=== PATIENT | female | born 1950 | race Two or more races ===

== ENCOUNTER 2017-07-05 08:30 | Day surgery (SDC) | payer MEDICARE, OTHER ==
[~2017-07-05 08:30] MED LIST: CEFAZOLIN 1 GM/D5W RTU 1 GM/50 ML RTUPB IV PRN; DEXTROSE 5%-1/2 NORMAL SALINE 1,000 ML IV PRN
--- NOTE | 2017-07-05 09:32 | RADIOLOGY REPORT (SQ) ---
EXAM DESCRIPTION: CHEST SINGLE VIEW COMPLETED DATE/TIME: 07/05/2017 9:21 am REASON FOR STUDY: PREOP COMPARISON: None. EXAM PARAMETERS: NUMBER OF VIEWS: One view. TECHNIQUE: Single frontal radiographic view of the chest acquired. RADIATION DOSE: NA LIMITATIONS: None. FINDINGS: LUNGS AND PLEURA: No opacities, masses or pneumothorax. No pleural effusion. MEDIASTINUM AND HILAR STRUCTURES: No masses. Contour normal. HEART AND VASCULAR STRUCTURES: Heart normal in size. Normal vasculature. BONES: No acute findings. HARDWARE: None in the chest. OTHER: No other significant finding. IMPRESSION: NO ACUTE RADIOGRAPHIC FINDING IN THE CHEST. TECHNICAL DOCUMENTATION: JOB ID: [id number] [employer]- All Rights Reserved
[2017-07-05 10:24] LABS: ABSOLUTE BASOPHILS # (AUTO) 0.1 10^3/uL (0.0-0.2); ABSOLUTE EOSINOPHILS # (AUTO) 0.1 10^3/uL (0.0-0.6); ABSOLUTE LYMPHOCYTES (AUTO) 2.1 10^3/uL (0.5-4.7); ABSOLUTE MONOCYTES (AUTO) 0.5 10^3/uL (0.1-1.4); ABSOLUTE NEUT (AUTO) 3.5 10^3/uL (1.7-8.2); BASOPHILS % (AUTO) 0.8 % (0-2); HEMOGLOBIN 10.4 g/dL (12.0-15.5); HGB HCT DIFFERENCE 0.2; MEAN CORPUSCULAR HEMOGLOBIN 29.2 pg (27.0-33.4); MEAN CORPUSCULAR HGB CONC 33.6 g/dL (32.0-36.0); MEAN CORPUSCULAR VOLUME 87 fl (80-97); MONOCYTES % (AUTO) 8.3 % (3-13); RED BLOOD COUNT 3.57 10^6/uL (3.72-5.28); RED CELL DISTRIBUTION WIDTH 12.9 % (11.5-14.0); SEGMENTED NEUTROPHILS % (AUTO) 55.9 % (42-78); WHITE BLOOD COUNT 6.2 10^3/uL (4.0-10.5)
[2017-07-05 10:44] LABS: ANION GAP 8 (5-19); BLOOD UREA NITROGEN 18 mg/dL (7-20); CALCIUM 9.6 mg/dL (8.4-10.2); CARBON DIOXIDE 28 mmol/L (22-30); CHLORIDE 105 mmol/L (98-107); CREATININE RESULT 0.72 mg/dL (0.52-1.25); GLUCOSE 106 mg/dL (75-110); POTASSIUM 3.5 mmol/L (3.6-5.0); SODIUM 141.2 mmol/L (137-145)
[2017-07-05] MEDS ORDERED: MIDAZOLAM 2 MG/2 ML INJ ONE (12:07)
[2017-07-05] MEDS ORDERED: BACITRACIN INJ 50,000 UNIT VIAL ONE (12:07)
[2017-07-05] MEDS ORDERED: FENTANYL CITRATE INJ/PF 100 MCG/2 ML AMPUL ONE (12:07)
[2017-07-05] MEDS ORDERED: LIDOCAINE 0.5% INJ-PF (5 MG/ML) 50 ML SDV ONE (12:09)
[2017-07-05] MEDS ORDERED: OXYCODONE-ACETAMINOPHEN 5-325 MG TABLET ONE (12:23)
[2017-07-05] MEDS ORDERED: DIAZEPAM 5 MG TABLET ONE (12:24)
[2017-07-05] MEDS ORDERED: OXYCODONE-ACETAMINOPHEN 5-325 MG TABLET PO ONE (13:30)
[2017-07-05] MEDS ORDERED: DIAZEPAM 5 MG TABLET PO ONE (13:30)
--- NOTE | 2017-07-05 13:49 | PDOC DISCHARGE SUMMARY ---
Discharge Summary (SDC) - Discharge Final Diagnosis: #1 endometrial cancer. 2. Hypertension. Date of Surgery: 07/05/17 Discharge Date: 07/05/17 Condition: Fair Treatment or Instructions: Discharge home [after recovery per ASU criteria]. Diet , as tolerated, when fully awake advance as tolerated. Activities within moderation encouraged. Follow up in my office by appointment in about [1 week]. Call for appointment. Leave wounds [covered], [keep clean and dry, until office visit in 1 week]. Medications per med rec. Hold of on school/work [until evaluation in office]. May shower [in 48 hrs], [try to keep operated area as dry as possible]. Prescriptions: Oxycodone HCl/Acetaminophen [Percocet 5-325 mg Tablet] 1 tab PO ASDIR PRN #15 tab PRN Reason: Referrals: HEMANT PEREZ PA [Primary Care Provider] - Discharge Diet: As Tolerated Respiratory Treatments at Home: Deep Breathing/Coughing Discharge Activity: Activity As Tolerated Report the Following to Your Physician Immediately: Shortness of Breath, Unusual Bleeding
--- NOTE | 2017-07-05 13:51 | Operative Report ---
Operative Report DATE OF SURGERY: 07/05/17 PREOPERATIVE DIAGNOSIS: #1 endometrial cancer. 2. Hypertension. POSTOPERATIVE DIAGNOSIS: #1 endometrial cancer. 2. Hypertension. OPERATION: 1. Real-time ultrasound access into the right internal jugular vein. 2. Port-A-Cath insertion via real-time access in the right internal jugular vein. 3 angiogram and interpretation. SURGEON: RAY HEALY PARKING PATROLLER: None ANESTHESIA: Moderate Sedation TISSUE REMOVED OR ALTERED: Not applicable. COMPLICATIONS: None. ESTIMATED BLOOD LOSS: 5 mL. INTRAOPERATIVE FINDINGS: Of a satisfactory right internal jugular vein, estimated about 1.2 cm in diameter. Satisfactory access. Apparently satisfactory placement of the tip of the catheter down to the right atrium. Angiogram demonstrated smooth flow of contrast through the superior vena cava, right atrium and into the pulmonary outflow tract. Easy egress of blood and ingress of heparinized solution. PROCEDURE: After obtaining informed consent, the patient was taken to the Retail Sales Clerk and positioned supine. The [right] neck and chest were prepared with chlorhexidine and draped out with sterile linen. After the " universal timeout", in which it was verified that the patient continued to receive antibiotic, the procedure commenced. A steriley sheathed ultrasound probe was used to evaluate the [ right] internal jugular vein. Local anesthesia was infiltrated adjacent to the probe. Access into the [right] internal jugular vein was obtained using a micropuncture needle, followed by micropuncture wire and then a micropuncture catheter. This was followed by introduction of a 0.035 guidewire the tip of which was placed down into the inferior vena cava . The port sites was marked , locally anesthetized and incision made. Dissection now proceeded to the deep subcutaneous subcutaneous tissues so that a pocket for the port was made. Meticulous hemostasis was secured and the catheter was tunneled between the 2 incisions. Proximally, the catheter was now positioned using a peel-away sheath. Distally the catheter was tailored to an appropriate length and then mated to the port using the contained fixating device. The port was now placed in the pocket and the catheter optimally positioned. The port was accessed with a Knight needle and an angiogram done under digital subtraction. The findings as dictated. With adequate and satisfactory positioning, both lumens of the chamber were irrigated with heparinized solution. The wounds were now closed using interrupted 3-0 PDS to the subcutaneous tissues and a continuous subcuticular suture of 4-0 Monocryl to the skin. These are reinforced with Steri-Strips over benzoin and then dressings applied. Time: 0.1 minute. Dose: 15.47 m Gy Contrast: 6 mls. Isovue 300. Copies of the dictated operative report for Dr. Ray Urias MD.
[2017-07-05 14:40] VITALS: BP 125/79
== END 2017-07-05 15:00 | disposition home or self-care (01) ==
LOC: CCL 08:30
PROVIDERS: ATTEND Surgery
PROC: 05HM33Z Insertion of Infusion Device into Right Internal Jugular Vein, Percutaneous Approach (ICD-10-PCS; principal; 2017-07-05)
DX: C54.1 Malignant neoplasm of endometrium (principal); I10 Essential (primary) hypertension; Z79.899 Other long term (current) drug therapy; Z79.1 Long term (current) use of non-steroidal anti-inflammatories (NSAID); Z96.652 Presence of left artificial knee joint
CPT/HCPCS: 36415; 85025; 80048; 36561; 76937; 77001; 71010; C1752; C1788; J2250; J3490 ×2; J0690; A9270 ×2; J3010; J1644

== ENCOUNTER → 2018-02-02 | Outpatient (CLI) | payer MEDICARE, OTHER ==
--- NOTE | 2018-02-02 11:58 | RADIOLOGY REPORT (SQ) ---
EXAM DESCRIPTION: CT ABD/PELVIS WITH IV ORAL COMPLETED DATE/TIME: 02/02/2018 11:35 am REASON FOR STUDY: MALIGNANT NEOPLASM OF ENDOMETRIUM (C54.1) C54.1 MALIGNANT NEOPLASM OF ENDOMETRIUM COMPARISON: CT abdomen pelvis 04/19/2017, outside study TECHNIQUE: CT scan of the abdomen and pelvis performed using helical scanning technique with dynamic intravenous contrast injection. Patient drank oral contrast. Images reviewed with lung, soft tissue , and bone windows. Reconstructed coronal and sagittal MPR images reviewed. Delayed images for evalua tion of the urinary system also acquired. All images stored on PACS. All CT scanners at this facility use dose modulation, iterative reconstruction, and/or weight based d osing when appropriate to reduce radiation dose to as low as reasonably achievable (ALARA). [facility]: Dose Right [facility]: CareDose [facility]: Dose Right [facility]: Teradose 4D [facility]: Inofile CONTRAST TYPE AND DOSE: contrast/concentration: Isovue 370.00 mg/ml; Total Contrast Delivered: 93.0 ml; Total Saline Delivered: 71.0 ml RENAL FUNCTION: Creatinine 1.0 RADIATION DOSE: CT Rad equipment meets quality standard of care and radiation dose reduction techniq ues were employed. CTDIvol: 17.1 - 18.6 mGy. DLP: 1856 mGy-cm.. LIMITATIONS: None. FINDINGS: LOWER CHEST: No significant findings. No nodules or infiltrates. LIVER: Normal size. No masses. No dilated ducts. SPLEEN: Normal size, less than 10 cm in length. No focal lesions. There is a large vein in the left upper quadrant along the GE junction, draining into the left renal vein. This is best shown on coron al images 50-58 and axial images 12-25. This could represent an anatomic variant or could be a spont aneous splenorenal shunt from portal hypertension. This is unchanged from outside CT 09/12/2017. PANCREAS: No masses. No significant calcifications. No adjacent inflammation or peripancreatic fluid collections. Pancreatic duct not dilated. GALLBLADDER: Post cholecystectomy ADRENAL GLANDS: No significant masses or asymmetry. RIGHT KIDNEY AND URETER: No solid masses. No significant calcifications. No hydronephrosis or hyd roureter. LEFT KIDNEY AND URETER: No solid masses. No significant calcifications. No hydronephrosis or hydr oureter. AORTA AND VESSELS: No aneurysm. No dissection. Renal arteries, SMA, celiac without stenosis. RETROPERITONEUM: No retroperitoneal adenopathy. There are pelvic and pericaval retroperitoneal surgi cami clips from lymph node dissection BOWEL AND PERITONEAL CAVITY: Patient drank oral contrast. No CT evidence of bowel obstruction. No f ree intraperitoneal air or fluid. APPENDIX: Surgically absent PELVIS: Post hysterectomy. No pelvic free fluid. No pelvic masses or adenopathy. ABDOMINAL WALL: No masses. No hernias. BONES: No significant or acute findings. OTHER: No other significant finding. IMPRESSION: No CT evidence of metastatic disease, given history of endometrial carcinoma TECHNICAL DOCUMENTATION: JOB ID: [id number] Quality ID # [id number]: Final reports with documentation of one or more dose reduction techniques (e.g., Au tomated exposure control, adjustment of the mA and/or kV according to patient size, use of iterative reconstruction technique) 2010 [employer]- All Rights Reserved Reading location - IP/workstation name: [email or web address]
== END ==
LOC: RAD 10:14
PROVIDERS: ATTEND Internal Medicine Hematology & Oncology
DX: C54.1 Malignant neoplasm of endometrium (principal)
CPT/HCPCS: 74177; 82565

== ENCOUNTER → 2018-08-07 | Outpatient (CLI) | payer MEDICARE, OTHER ==
--- NOTE | 2018-08-07 14:53 | RADIOLOGY REPORT (SQ) ---
EXAM DESCRIPTION: NM WHOLE BODY BONE SCAN COMPLETED DATE/TIME: 08/07/2018 2:37 pm REASON FOR STUDY: ENDOMETRIAL CA (C54.1), OTHER SPECIFIED DISORDERS OF BONE DENSITY AND STRUC C54.1 MALIGNANT NEOPLASM OF ENDOMETRIUM M85.80 OTH DISRD OF BONE DENSITY AND STRUCTURE, UNSPECIFIED COMPARISON: CT abdomen pelvis 02/02/2018 RADIONUCLIDE AND DOSE: 20 millicuries Tc99m HDP. The route of agent administration: Intravenous. ADDITIONAL DRUGS AND DOSES: None. TECHNIQUE: Routine delayed images at 3 hours post radionuclide injection acquired of the bony skelet on including anterior and posterior whole-body projections and additional focused images as needed. LIMITATIONS: None. FINDINGS: BONES: There is degenerative uptake in the right knee. There is degenerative uptake in th e feet, right more than left. There is focal uptake on the right side at L3. There is mild focal up take in the right side of the mid cervical spine. KIDNEYS: Symmetric excretion without obstruction. OTHER: No other significant finding. IMPRESSION: 1. Degenerative uptake in the right knee and in the feet as described. 2. There is mild uptake in the lumbar spine and in the cervical spine felt to be degenerative. The overall appearance of the scan does not suggest metastatic disease to bone. COMMENT: Quality measure 147: Current bone scan is compared with any available plain radiographs, p rior bone scans, and CT/MRI. TECHNICAL DOCUMENTATION: JOB ID: [id number] [employer]- All Rights Reserved Reading location - IP/workstation name: [email or web address]
== END ==
LOC: RAD 10:11
PROVIDERS: ATTEND Internal Medicine Hematology & Oncology
DX: C54.1 Malignant neoplasm of endometrium (principal); M85.80 Other specified disorders of bone density and structure, unspecified site; M17.11 Unilateral primary osteoarthritis, right knee; M19.072 Primary osteoarthritis, left ankle and foot; M19.071 Primary osteoarthritis, right ankle and foot
CPT/HCPCS: 78306; A9561; Q9969

== ENCOUNTER 2018-10-13 17:50 | Emergency (ER) | payer MEDICARE ==
[2018-10-13 18:10] VITALS: BP 138/83
== END 2018-10-13 22:20 | disposition left against medical advice (07) ==
LOC: ER 17:50
DX: Z53.21 Procedure and treatment not carried out due to patient leaving prior to being seen by health care provider (principal)

== ENCOUNTER 2019-02-09 14:45 | Inpatient (IN) | payer MEDICARE, OTHER ==
[2019-02-09] MEDS ORDERED: VANCOMYCIN HCL INJ 1000 MG VIAL IV ONE (15:03)
[2019-02-09] MEDS ORDERED: ACETAMINOPHEN 325 MG TABLET PO ONE (15:03)
[2019-02-09] MEDS ORDERED: PIPERACILLIN/TAZOBACTAM 3.375 GM VIAL IV ONE (15:04)
[2019-02-09] MEDS ORDERED: NORMAL SALINE 1000 ML 1,000 ML IV ONE (15:05)
--- NOTE | 2019-02-09 15:51 | ER Document Report ---
ED Fever - General Chief Complaint: Fever Stated Complaint: FEVER Time Seen by Provider: 02/09/19 15:02 Primary Care Provider: VIJAY BRANDON MD [Primary Care Provider] - Follow up as needed Information source: Patient TRAVEL OUTSIDE OF THE [place] IN LAST 30 DAYS: No - HPI Patient complains to provider of: fever Onset: Yesterday Onset/Duration: Gradual Quality of pain: Achy Severity: Mild Context: Cancer Associated symptoms: Fever, Headache, Sore throat Notes: patient with AML presenting to ED with fever she is on chemotherapy with last treatment approximately 2 weeks ago no chest pain, sob, urinary pain, rashes, vomiting/diarrhea she does have a headache and body aches - Related Data Allergies/Adverse Reactions: morphine Allergy (Verified 02/09/19 15:03) Past Medical History - Social History Smoking Status: Never Smoker Chew tobacco use (# tins/day): No Frequency of alcohol use: None Drug Abuse: None Lives with: Spouse/Significant other Family History: None Patient has suicidal ideation: No Patient has homicidal ideation: No - Past Medical History Cardiac Medical History: Reports: Hx Hypertension Denies: Hx Coronary Artery Disease, Hx Heart Attack Pulmonary Medical History: Denies: Hx Asthma, Hx Bronchitis, Hx COPD, Hx Pneumonia Neurological Medical History: Denies: Hx Cerebrovascular Accident, Hx Seizures Renal/ Medical History: Denies: Hx Peritoneal Dialysis Musculoskeletal Medical History: Reports Hx Arthritis - GENERALIZED - Immunizations Hx Diphtheria, Pertussis, Tetanus Vaccination: Yes Review of Systems - Review of Systems Constitutional: Fever EENT: No symptoms reported Cardiovascular: No symptoms reported Respiratory: No symptoms reported Gastrointestinal: No symptoms reported Genitourinary: No symptoms reported Female Genitourinary: No symptoms reported Musculoskeletal: Muscle pain Skin: No symptoms reported Hematologic/Lymphatic: No symptoms reported Neurological/Psychological: Headaches Physical Exam - Vital signs Vitals: Temp Pulse Resp BP Pulse Ox 100.1 F 125 H 20 134/68 H 98 02/09/19 15:02 02/09/19 15:02 02/09/19 15:02 02/09/19 15:02 02/09/19 15:02 Interpretation: Normal - General General appearance: Appears well, Alert - HEENT Head: Normocephalic, Atraumatic Eyes: Normal Pupils: PERRL - Respiratory Respiratory status: No respiratory distress Chest status: Nontender Breath sounds: Normal Chest palpation: Normal - Cardiovascular Rhythm: Regular Heart sounds: Normal auscultation Murmur: No - Abdominal Inspection: Normal Distension: No distension Bowel sounds: Normal Tenderness: Nontender Organomegaly: No organomegaly - Back Back: Normal, Nontender - Extremities General upper extremity: Normal inspection, Nontender, Normal color, Normal ROM, Normal temperature General lower extremity: Normal inspection, Nontender, Normal color, Normal ROM, Normal temperature, Normal weight bearing. No: Christy's sign - Neurological Neuro grossly intact: Yes Cognition: Normal Orientation: AAOx4 Jerald Coma Scale Eye Opening: Spontaneous [place] Coma Scale Verbal: Oriented [place] Coma Scale Motor: Obeys Commands Jerald Coma Scale Total: 15 Speech: Normal Motor strength normal: LUE, RUE, LLE, RLE Sensory: Normal - Psychological Associated symptoms: Normal affect, Normal mood - Skin Skin Temperature: Warm Skin Moisture: Dry Skin Color: Normal Course - Re-evaluation Re-evalutation: 02/09/19 15:51 patient w/ fever in context of recent chemo. start abx and fluid resuscitation along w/ tylenol after initial evaluation while screening for sepsis/neutropenic fever 02/09/19 17:35 patient not neutropenic but has pneumonia w/ SIRS criteria. already covered w/ antibiotics. discussed with hospitalist for admission - Vital Signs Vital signs: Temp Pulse Resp BP Pulse Ox 99.9 F 125 H 22 H 100/78 96 02/09/19 16:53 02/09/19 15:02 02/09/19 17:01 02/09/19 17:01 02/09/19 17:01 - Laboratory Result Diagrams: 02/09/19 15:35 02/09/19 15:35 Laboratory results interpreted by me: 02/09/19 02/09/19 02/09/19 15:35 15:35 15:35 WBC 12.7 H RBC 2.50 L Hgb 8.4 L Hct 24.5 L MCV 98 H MCH 33.6 H RDW 24.0 H Plt Count 41 L Seg Neuts % (Manual) 14 L Band Neutrophils % 2 L Monocytes % (Manual) 64 H Immature Leukocytes % 2 H Abs Monocytes (Manual) 8.1 H VBG pH 7.43 H Sodium 136.8 L Potassium 3.4 L Glucose 153 H Direct Bilirubin 0.6 H AST 53 H - EKG Interpretation by Me EKG shows normal: Sinus rhythm Rate: Tachycardia Rhythm: NSR [place]/QRS: No: Right axis deviation, Left axis deviation, RBBB, LBBB, IVCD, LAHB/LAFB, LPHB/LPFB, Bifasicular block Voltage: No: Increased voltage, Consistant with LVH, Decreased voltage, Throughout, Limb leads P Waves: No: MALINI, LAE, Absent, AV Dissociation, Other Heart block present: No: 1st Degree, Mobitz 1, Mobitz 2, CHB (3rd degree block) Discharge - Discharge Clinical Impression: Pneumonia Qualifiers: Pneumonia type: due to unspecified organism Laterality: unspecified laterality Lung location: unspecified part of lung Qualified Code(s): J18.9 - Pneumonia, unspecified organism Fever Qualifiers: Fever type: unspecified Qualified Code(s): R50.9 - Fever, unspecified AML (acute myeloid leukemia) Qualifiers: Leukemia Active/Remission status: without remission Qualified Code(s): C92.00 - Acute myeloblastic leukemia, not having achieved remission Condition: Good Disposition: ADMITTED INPATIENT Admitting Provider: Jaylen Chao [employer] Unit Admitted: Medical Floor Referrals: VIJAY BRANDON MD [Primary Care Provider] - Follow up as needed
[2019-02-09 16:02] LABS: HEMATOCRIT 24.5 % (36.0-47.0); HEMOGLOBIN 8.4 g/dL (12.0-15.5); MEAN CORPUSCULAR HEMOGLOBIN 33.6 pg (27.0-33.4); MEAN CORPUSCULAR HGB CONC 34.3 g/dL (32.0-36.0); MEAN CORPUSCULAR VOLUME 98 fl (80-97); VENOUS BLOOD BASE EXCESS 5.6 mmol/L; VENOUS BLOOD HCO3 30.4 mmol/L (20-32); VENOUS BLOOD PCO2 46.4 mmHg (35-63); VENOUS BLOOD PH 7.43 (7.30-7.42)
[2019-02-09 16:04] LABS: INTERNATIONAL RATION (INR) 1.11; PLATELET COUNT 41 10^3/uL (150-450); PROTHROMBIN TIME 14.3 SEC (11.4-15.4)
[2019-02-09 16:14] LABS: ALANINE AMINOTRANSFERASE 29 U/L (9-52); ALBUMIN 3.7 g/dL (3.5-5.0); ALKALINE PHOSPHATASE 89 U/L (38-126); ANION GAP 10 (5-19); ASPARTATE AMINO TRANSFERASE 53 U/L (14-36); BILIRUBIN,DIRECT 0.6 mg/dL (0.0-0.4); BILIRUBIN,TOTAL 1.2 mg/dL (0.2-1.3); BLOOD UREA NITROGEN 17 mg/dL (7-20); CALCIUM 9.8 mg/dL (8.4-10.2); CARBON DIOXIDE 29 mmol/L (22-30); CHLORIDE 98 mmol/L (98-107); GLUCOSE 153 mg/dL (75-110); POTASSIUM 3.4 mmol/L (3.6-5.0); SODIUM 136.8 mmol/L (137-145); TOTAL PROTEIN 6.4 g/dL (6.3-8.2)
[2019-02-09 16:33] LABS: WHITE BLOOD COUNT 12.7 10^3/uL (4.0-10.5)
[2019-02-09 16:34] LABS: ABSOLUTE LYMPHOCYTES# (MANUAL) 2.3 10^3/uL (0.5-4.7); ABSOLUTE MONOCYTES # (MANUAL) 8.1 10^3/uL (0.1-1.4); BAND NEUTROPHILS % (MANUAL) 2 % (3-5); BASOPHILS % (MANUAL) 0 % (0-2); EOSINOPHILS % (MANUAL) 0 % (0-6); LYMPHOCYTES % (MANUAL) 18 % (13-45); NUCLEATED RED BLOOD CELLS 5 /100 WBC (0); SEGMENTED NEUTROPHILS % (MAN) 14 % (42-78); TOTAL CELLS COUNTED 100
[2019-02-09 16:40] LABS: PLATELET COMMENT DECREASED
[2019-02-09 16:41] LABS: ANISOCYTOSIS 3+; HYPOCHROMASIA 1+; POIKILOCYTOSIS 2+; POLYCHROMASIA 1+
[2019-02-09 16:42] LABS: IMMATURE MONONUCLEAR% (MANUAL) 2 % (0); MONOCYTES % (MANUAL) 64 % (3-13)
[2019-02-09 16:43] LABS: SCHISTOCYTES SLIGHT
--- NOTE | 2019-02-09 16:54 | RADIOLOGY REPORT (SQ) ---
EXAM DESCRIPTION: CHEST 2 VIEWS COMPLETED DATE/TIME: 02/09/2019 4:40 pm REASON FOR STUDY: cough fever COMPARISON: 07/05/2017 TECHNIQUE: Frontal and lateral radiographic views of the chest acquired. NUMBER OF VIEWS: Two view. LIMITATIONS: None. FINDINGS: LUNGS AND PLEURA: No pneumothorax. Small area of airspace disease in the left lateral arvin g base. Small bilateral pleural effusions. MEDIASTINUM AND HILAR STRUCTURES: Stable. HEART AND VASCULAR STRUCTURES: Stable. BONES: No acute findings. HARDWARE: Right chest port. OTHER: No other significant finding. IMPRESSION: Small area of airspace disease in the left lateral lung base. Small bilateral pleural effusions. TECHNICAL DOCUMENTATION: JOB ID: [id number] 2010 [employer]- All Rights Reserved Reading location - IP/workstation name: [email or web address]
[2019-02-09 17:36] LABS: APPEARANCE,URINE CLEAR; BILIRUBIN,URINE NEGATIVE (NEGATIVE); COLOR,URINE YELLOW; GLUCOSE, URINE NEGATIVE (NEGATIVE); KETONES,URINE NEGATIVE (NEGATIVE); LEUKOCYTE ESTERASE,URINE TRACE (NEGATIVE); NITRITE,URINE NEGATIVE (NEGATIVE); PROTEIN,URINE 30 mg/dL (NEGATIVE); URINE SPECIFIC GRAVITY 1.015; UROBILINOGEN,URINE NEGATIVE mg/dL (<2.0)
[2019-02-09] MEDS ORDERED: ZOLPIDEM TARTRATE 5 MG TABLET PO PRN (17:58)
[2019-02-09] MEDS ORDERED: ONDANSETRON 4 MG TAB.RAPDIS PO PRN (17:58)
[2019-02-09] MEDS ORDERED: MAGNESIUM HYDROXIDE SUSP 30 ML UDCUP PO PRN (17:58)
[2019-02-09] MEDS ORDERED: FENTANYL CITRATE INJ/PF 100 MCG/2 ML AMPUL IV PRN (18:03)
[2019-02-09] MEDS ORDERED: POTASSIUM CHLORIDE 10 MEQ CAPSULE.ER PO ONE (18:05)
--- NOTE | 2019-02-09 18:06 | Progress Note Acknowledgement ---
Progress Note Acknowledgement Progess Note Acknowledgement: I, the undersigned member of the medical staff with appropriate privileges and with supervisory authority over Jaylen Chao, a [facility] allied health professional, acknowledge that I have reviewed the progress notes entered on this patient, and in my professional judgment believe that the assessment made and/or any care evidenced was appropriate
--- NOTE | 2019-02-09 18:12 | PDOC H&P ---
History of Present Illness Admission Date/PCP: 02/09/2019 VIJAY MCCLENDON MD Patient complains of: Fever History of Present Illness: KRISTOFER FLORES is a 68 year old female with a past medical history of AML who reports to the ER with a 2-day history of fever. Patient states her fever got up to around 101 last night she took some Tylenol it went down initially came back her son gave her some NyQuil again it went away and then this morning he came back at 100.9. Patient states no other symptoms at this time. She has had no treatment other than the above-mentioned prior to arrival no known aggravating factors Past Medical History Cardiac Medical History: Reports: Hypertension Denies: Coronary Artery Disease, Myocardial Infarction Pulmonary Medical History: Denies: Asthma, Bronchitis, Chronic Obstructive Pulmonary Disease (COPD), Pneumonia Neurological Medical History: Denies: Seizures Musculoskeltal Medical History: Reports: Arthritis - GENERALIZED Hematology: Denies: Anemia Social History Information Source: Patient Lives with: Family, Spouse/Significant other Smoking Status: Never Smoker Frequency of Alcohol Use: None Hx Recreational Drug Use: No Drugs: None Hx Prescription Drug Abuse: No - Advance Directive Resuscitation Status: Full Code Family History Family History: None Parental Family History Reviewed: Yes Children Family History Reviewed: Yes Sibling(s) Family History Reviewed.: Yes Medication/Allergy Home Medications: Allopurinol [Zyloprim 300 mg Tablet] 300 mg PO DAILY 02/09/19 Amlodipine Besylate [Norvasc 10 mg Tablet] 10 mg PO DAILY 02/09/19 Lidocaine [Lidoderm 5% (700 mg) Transdermal Patch] 1 patch TOP DAILY 02/09/19 Potassium Chloride [Potassium Chloride 20 Meq Packet] 20 meq PO DAILY 02/09/19 Valacyclovir HCl [Valtrex 500 mg Tablet] 500 mg PO DAILY 02/09/19 Venetoclax [Venclexta] 100 mg PO Q12 02/09/19 Allergies/Adverse Reactions: morphine Allergy (Verified 02/09/19 15:03) Review of Systems Constitutional: PRESENT: fever(s) Eyes: ABSENT: visual disturbances Ears: ABSENT: hearing changes Cardiovascular: ABSENT: chest pain, dyspnea on exertion, edema, orthropnea, palpitations Respiratory: ABSENT: cough, hemoptysis Gastrointestinal: ABSENT: abdominal pain, constipation, diarrhea, hematemesis, hematochezia, nausea, vomiting Genitourinary: ABSENT: dysuria, hematuria Musculoskeletal: ABSENT: joint swelling Integumentary: ABSENT: rash, wounds Neurological: ABSENT: abnormal gait, abnormal speech, confusion, dizziness, focal weakness, syncope Psychiatric: ABSENT: anxiety, depression, homidical ideation, suicidal ideation Endocrine: ABSENT: cold intolerance, heat intolerance, polydipsia, polyuria Hematologic/Lymphatic: ABSENT: easy bleeding, easy bruising Physical Exam Vital Signs: Temp Pulse Resp BP Pulse Ox 99.9 F 125 H 22 H 100/78 96 02/09/19 16:53 02/09/19 15:02 02/09/19 17:01 02/09/19 17:01 02/09/19 17:01 Intake & Output 02/08/19 02/09/19 02/10/19 06:59 06:59 06:59 Intake Total 1000 Balance 1000 Weight 86.4 kg General appearance: PRESENT: no acute distress, well-developed, well-nourished Head exam: PRESENT: atraumatic, normocephalic Eye exam: PRESENT: conjunctiva pink, EOMI, PERRLA. ABSENT: scleral icterus Ear exam: PRESENT: normal external ear exam Mouth exam: PRESENT: moist, tongue midline Neck exam: ABSENT: carotid bruit, JVD, lymphadenopathy, thyromegaly Respiratory exam: PRESENT: clear to auscultation luz. ABSENT: rales, rhonchi, wheezes Cardiovascular exam: PRESENT: RRR. ABSENT: diastolic murmur, rubs, systolic murmur Pulses: PRESENT: normal dorsalis pedis pul Vascular exam: PRESENT: normal capillary refill GI/Abdominal exam: PRESENT: normal bowel sounds, soft. ABSENT: distended, guarding, mass, organolmegaly, rebound, tenderness Rectal exam: PRESENT: deferred Extremities exam: PRESENT: full ROM. ABSENT: calf tenderness, clubbing, pedal edema Neurological exam: PRESENT: alert, awake, oriented to person, oriented to place, oriented to time, oriented to situation, CN II-XII grossly intact. ABSENT: motor sensory deficit Psychiatric exam: PRESENT: appropriate affect, normal mood. ABSENT: homicidal ideation, suicidal ideation Skin exam: PRESENT: dry, intact, warm. ABSENT: cyanosis, rash Results Laboratory Results: 02/09/19 15:35 02/09/19 15:35 07/07/1902/09/19 02/09/19 15:35 15:35 15:35 WBC 12.7 H RBC 2.50 L Hgb 8.4 L Hct 24.5 L MCV 98 H MCH 33.6 H MCHC 34.3 RDW 24.0 H Plt Count 41 L Seg Neutrophils % Not Reportable Lymphocytes % Not Reportable Monocytes % Not Reportable Eosinophils % Not Reportable Basophils % Not Reportable Absolute Neutrophils Not Reportable Absolute Lymphocytes Not Reportable Absolute Monocytes Not Reportable Absolute Eosinophils Not Reportable Absolute Basophils Not Reportable VBG pH VBG pCO2 VBG HCO3 VBG Base Excess Sodium 136.8 L Potassium 3.4 L Chloride 98 Carbon Dioxide 29 Anion Gap 10 BUN 17 Creatinine 0.87 Est GFR ( Amer) > 60 Est GFR (Non-Af Amer) > 60 Glucose 153 H Lactic Acid 1.6 Calcium 9.8 Total Bilirubin 1.2 AST 53 H ALT 29 Alkaline Phosphatase 89 Total Protein 6.4 Albumin 3.7 Urine Color Urine Appearance Urine pH Ur Specific [place] Urine Protein Urine Glucose (UA) Urine Ketones Urine Blood Urine Nitrite Ur Leukocyte Esterase Urine WBC (Auto) Urine RBC (Auto) 02/09/19 02/09/19 15:35 17:24 WBC RBC Hgb Hct MCV MCH MCHC RDW Plt Count Seg Neutrophils % Lymphocytes % Monocytes % Eosinophils % Basophils % Absolute Neutrophils Absolute Lymphocytes Absolute Monocytes Absolute Eosinophils Absolute Basophils VBG pH 7.43 H VBG pCO2 46.4 VBG HCO3 30.4 VBG Base Excess 5.6 Sodium Potassium Chloride Carbon Dioxide Anion Gap BUN Creatinine Est GFR ( Amer) Est GFR (Non-Af Amer) Glucose Lactic Acid Calcium Total Bilirubin AST ALT Alkaline Phosphatase Total Protein Albumin Urine Color YELLOW Urine Appearance CLEAR Urine pH 6.0 Ur Specific [place] 1.015 Urine Protein 30 H Urine Glucose (UA) NEGATIVE Urine Ketones NEGATIVE Urine Blood NEGATIVE Urine Nitrite NEGATIVE Ur Leukocyte Esterase TRACE H Urine WBC (Auto) 9 Urine RBC (Auto) 1 02/09/19 15:35 Troponin I < 0.012 Impressions: Chest X-Ray 02/09/19 15:03 IMPRESSION: Small area of airspace disease in the left lateral lung base. Small bilateral pleural effusions. Assessment and Plan - Diagnosis (1) Fever Qualifiers: Fever type: unspecified Qualified Code(s): R50.9 - Fever, unspecified Is this a current diagnosis for this admission?: Yes Plan: 02/09/2019-unknown etiology at this time. Patient did have blood cultures and urine culture sent from the ER. Was started on vancomycin and Zosyn which I will continue at this time. I will have pharmacy dose both antibiotics. Patient does have AML and I will consult Dr. Mcclendon for further evaluation and treatment. (2) AML (acute myeloid leukemia) Qualifiers: Leukemia Active/Remission status: without remission Qualified Code(s): C92.00 - Acute myeloblastic leukemia, not having achieved remission Is this a current diagnosis for this admission?: Yes Plan: 02/09/2019-consult Dr. Mcclendon for further evaluation and treatment (3) Pneumonia Qualifiers: Pneumonia type: due to unspecified organism Laterality: unspecified laterality Lung location: unspecified part of lung Qualified Code(s): J18.9 - Pneumonia, unspecified organism Is this a current diagnosis for this admission?: Yes Plan: 02/09/2019-vancomycin and Zosyn per pharmacy dosing. Will await cultures for offending organism may change plan of care as appropriate. (4) Hypokalemia Is this a current diagnosis for this admission?: Yes Plan: 02/09/2019-mild we will give 20 mEq of KCl p.o. times 1 repeat potassium level in a.m. - Time Time Spent with patient: 35 or more minutes Anticipated discharge: Home Within: within 72 hours - Inpatient Certification Based on my medical assessment, after consideration of the patient's comorbidities, presenting symptoms, or acuity I expect that the services needed warrant INPATIENT care.: Yes I certify that my determination is in accordance with my understanding of Medicare's requirements for reasonable and necessary INPATIENT services [42 CFR 412.3e].: Yes Post Hospital Care: Other - IV antibiotics, blood and urine cultures, oncology consultation
[2019-02-09] MEDS ORDERED: ENOXAPARIN SODIUM INJ 40 MG/0.4 ML DISP.SYRIN SUBCUT SCH (18:15)
[2019-02-09] MEDS ORDERED: PHARMACY COMMUNICATION ORDER MC NR (18:15)
[2019-02-09] MEDS ORDERED: POTASSIUM CHLORIDE 20 MEQ PACKET PO ONE (18:44)
[2019-02-09] MEDS: VANCOMYCIN HCL 750 MG in DEXTROSE 5%-WATER 250 ML IV SCH (22:40)
--- NOTE | 2019-02-09 22:43 | EKG REPORT ---
SEVERITY:- ABNORMAL ECG - SINUS TACHYCARDIA LEFT VENTRICULAR HYPERTROPHY : Confirmed by: Chandrika Jiménez MD 09-Feb-2019 22:43:18
[2019-02-10] MEDS ORDERED: ACETAMINOPHEN 325 MG TABLET PO PRN (00:24)
[2019-02-10] MEDS: PIPERACILLIN SODIUM/TAZOBACTAM 3.375 GM in NORMAL SALINE 100 ML IV SCH ×2 (00:33→06:27)
[2019-02-10] MEDS: IBUPROFEN 800 MG TABLET PO PRN (00:34)
[2019-02-10 05:40] LABS: ANION GAP 5 (5-19); BLOOD UREA NITROGEN 16 mg/dL (7-20); CALCIUM 8.6 mg/dL (8.4-10.2); CARBON DIOXIDE 28 mmol/L (22-30); CHLORIDE 105 mmol/L (98-107); GLUCOSE 120 mg/dL (75-110); POTASSIUM 3.1 mmol/L (3.6-5.0); SODIUM 137.5 mmol/L (137-145)
[2019-02-10 07:36] LABS: HEMATOCRIT 20.1 % (36.0-47.0); MEAN CORPUSCULAR HEMOGLOBIN 36.9 pg (27.0-33.4); MEAN CORPUSCULAR HGB CONC 35.7 g/dL (32.0-36.0); RED BLOOD COUNT 1.94 10^6/uL (3.72-5.28); RED CELL DISTRIBUTION WIDTH 23.6 % (11.5-14.0); WHITE BLOOD COUNT 14.3 10^3/uL (4.0-10.5)
[2019-02-10 08:04] LABS: ABSOLUTE LYMPHOCYTES# (MANUAL) 2.6 10^3/uL (0.5-4.7); ABSOLUTE MONOCYTES # (MANUAL) 8.4 10^3/uL (0.1-1.4); BASOPHILS % (MANUAL) 0 % (0-2); EOSINOPHILS % (MANUAL) 0 % (0-6); LYMPHOCYTES % (MANUAL) 18 % (13-45); METAMYELOCYTES % (MANUAL) 1 % (0); MONOCYTES % (MANUAL) 59 % (3-13); NUCLEATED RED BLOOD CELLS 4 /100 WBC (0); SEGMENTED NEUTROPHILS % (MAN) 22 % (42-78); TOTAL CELLS COUNTED 100
[2019-02-10 08:10] LABS: ANISOCYTOSIS 3+; PLATELET COMMENT DECREASED; POLYCHROMASIA SLIGHT
[2019-02-10 08:11] LABS: MEAN CORPUSCULAR VOLUME 103 fl (80-97)
[2019-02-10 08:14] LABS: HEMOGLOBIN 7.2 g/dL (12.0-15.5)
[2019-02-10 08:15] LABS: PLATELET COUNT 29 10^3/uL (150-450)
[2019-02-10] MEDS: VANCOMYCIN HCL 750 MG in DEXTROSE 5%-WATER 250 ML IV SCH (09:49)
[2019-02-10] MEDS ORDERED: POTASSIUM CHLORIDE 10 MEQ CAPSULE.ER PO ONE (10:07)
--- NOTE | 2019-02-10 10:10 | Progress Note Acknowledgement ---
Progress Note Acknowledgement Progess Note Acknowledgement: I, the undersigned member of the medical staff with appropriate privileges and with supervisory authority over Jaylen Chao, a [facility] practice allied health professional, acknowledge that I have reviewed the progress notes entered on this patient, and in my professional judgment believe that the assessment made and/or any care evidenced was appropriate
--- NOTE | 2019-02-10 10:16 | PDOC PROGRESS REPORT ---
Subjective Progress Note for:: 02/10/19 Subjective:: 02/10/2019-sitting on side of bed with no signs of acute distress this time. States no complaints. States she did have several bouts where her fever would fluctuate throughout the night. Reason For Visit: FEVER Physical Exam Vital Signs: Temp Pulse Resp BP Pulse Ox 98.1 F 81 15 104/68 97 02/10/19 08:06 02/10/19 08:06 02/10/19 08:06 02/10/19 08:06 02/10/19 08:06 Intake & Output 02/09/19 02/10/19 02/11/19 06:59 06:59 06:59 Intake Total 1800 100 Balance 1800 100 Weight 84.6 kg General appearance: PRESENT: no acute distress, well-developed, well-nourished Neck exam: ABSENT: carotid bruit, JVD, lymphadenopathy, thyromegaly Respiratory exam: PRESENT: clear to auscultation ulz. ABSENT: rales, rhonchi, wheezes Cardiovascular exam: PRESENT: RRR. ABSENT: diastolic murmur, rubs, systolic murmur Pulses: PRESENT: normal dorsalis pedis pul Vascular exam: PRESENT: normal capillary refill GI/Abdominal exam: PRESENT: normal bowel sounds, soft. ABSENT: distended, guarding, mass, organolmegaly, rebound, tenderness Extremities exam: PRESENT: full ROM. ABSENT: calf tenderness, clubbing, pedal edema Neurological exam: PRESENT: alert, awake, oriented to person, oriented to place, oriented to time, oriented to situation, CN II-XII grossly intact. ABSENT: motor sensory deficit Psychiatric exam: PRESENT: appropriate affect, normal mood. ABSENT: homicidal ideation, suicidal ideation Skin exam: PRESENT: dry, intact, warm. ABSENT: cyanosis, rash Results Laboratory Results: 02/10/19 06:53 02/10/19 04:44 02/09/19 02/09/19 02/09/19 15:35 15:35 15:35 WBC 12.7 H RBC 2.50 L Hgb 8.4 L Hct 24.5 L MCV 98 H MCH 33.6 H MCHC 34.3 RDW 24.0 H Plt Count 41 L Seg Neutrophils % Not Reportable Lymphocytes % Not Reportable Monocytes % Not Reportable Eosinophils % Not Reportable Basophils % Not Reportable Absolute Neutrophils Not Reportable Absolute Lymphocytes Not Reportable Absolute Monocytes Not Reportable Absolute Eosinophils Not Reportable Absolute Basophils Not Reportable VBG pH VBG pCO2 VBG HCO3 VBG Base Excess Sodium 136.8 L Potassium 3.4 L Chloride 98 Carbon Dioxide 29 Anion Gap 10 BUN 17 Creatinine 0.87 Est GFR ( Amer) > 60 Est GFR (Non-Af Amer) > 60 Glucose 153 H Lactic Acid 1.6 Calcium 9.8 Total Bilirubin 1.2 AST 53 H ALT 29 Alkaline Phosphatase 89 Total Protein 6.4 Albumin 3.7 Urine Color Urine Appearance Urine pH Ur Specific [place] Urine Protein Urine Glucose (UA) Urine Ketones Urine Blood Urine Nitrite Ur Leukocyte Esterase Urine WBC (Auto) Urine RBC (Auto) 02/09/19 02/09/19 02/10/19 15:35 17:24 04:44 WBC Cancelled RBC Cancelled Hgb Cancelled Hct Cancelled MCV Cancelled MCH Cancelled MCHC Cancelled RDW Cancelled Plt Count Cancelled Seg Neutrophils % Cancelled Lymphocytes % Cancelled Monocytes % Cancelled Eosinophils % Cancelled Basophils % Cancelled Absolute Neutrophils Cancelled Absolute Lymphocytes Cancelled Absolute Monocytes Cancelled Absolute Eosinophils Cancelled Absolute Basophils Cancelled VBG pH 7.43 H VBG pCO2 46.4 VBG HCO3 30.4 VBG Base Excess 5.6 Sodium Potassium Chloride Carbon Dioxide Anion Gap BUN Creatinine Est GFR ( Amer) Est GFR (Non-Af Amer) Glucose Lactic Acid Calcium Total Bilirubin AST ALT Alkaline Phosphatase Total Protein Albumin Urine Color YELLOW Urine Appearance CLEAR Urine pH 6.0 Ur Specific [place] 1.015 Urine Protein 30 H Urine Glucose (UA) NEGATIVE Urine Ketones NEGATIVE Urine Blood NEGATIVE Urine Nitrite NEGATIVE Ur Leukocyte Esterase TRACE H Urine WBC (Auto) 9 Urine RBC (Auto) 1 02/10/19 02/10/19 04:44 06:53 WBC 14.3 H RBC 1.94 L Hgb 7.2 L Hct 20.1 L MCV 103 H D MCH 36.9 H MCHC 35.7 RDW 23.6 H Plt Count 29 L* Seg Neutrophils % Not Reportable Lymphocytes % Not Reportable Monocytes % Not Reportable Eosinophils % Not Reportable Basophils % Not Reportable Absolute Neutrophils Not Reportable Absolute Lymphocytes Not Reportable Absolute Monocytes Not Reportable Absolute Eosinophils Not Reportable Absolute Basophils Not Reportable VBG pH VBG pCO2 VBG HCO3 VBG Base Excess Sodium 137.5 Potassium 3.1 L Chloride 105 Carbon Dioxide 28 Anion Gap 5 BUN 16 Creatinine 0.87 Est GFR ( Amer) > 60 Est GFR (Non-Af Amer) > 60 Glucose 120 H Lactic Acid Calcium 8.6 Total Bilirubin AST ALT Alkaline Phosphatase Total Protein Albumin Urine Color Urine Appearance Urine pH Ur Specific [place] Urine Protein Urine Glucose (UA) Urine Ketones Urine Blood Urine Nitrite Ur Leukocyte Esterase Urine WBC (Auto) Urine RBC (Auto) 02/09/19 15:35 Troponin I < 0.012 Impressions: Chest X-Ray 02/09/19 15:03 IMPRESSION: Small area of airspace disease in the left lateral lung base. Small bilateral pleural effusions. Assessment and Plan - Diagnosis (1) Fever Qualifiers: Fever type: unspecified Qualified Code(s): R50.9 - Fever, unspecified Is this a current diagnosis for this admission?: Yes Plan: 02/09/2019-unknown etiology at this time. Patient did have blood cultures and urine culture sent from the ER. Was started on vancomycin and Zosyn which I will continue at this time. I will have pharmacy dose both antibiotics. Patient does have AML and I will consult Dr. Mcclendon for further evaluation and treatment. 02/10/2019-awaiting cultures. Patient continues on vancomycin and Zosyn at this time. Awaiting consultation from Dr. Mcclendon for further evaluation and treatment. (2) AML (acute myeloid leukemia) Qualifiers: Leukemia Active/Remission status: without remission Qualified Code(s): C92.00 - Acute myeloblastic leukemia, not having achieved remission Is this a current diagnosis for this admission?: Yes Plan: 02/09/2019-consult Dr. Mcclendon for further evaluation and treatment 02/10/2019-awaiting oncology eval. (3) Pneumonia Qualifiers: Pneumonia type: due to unspecified organism Laterality: unspecified laterality Lung location: unspecified part of lung Qualified Code(s): J18.9 - Pneumonia, unspecified organism Is this a current diagnosis for this admission?: Yes Plan: 02/09/2019-vancomycin and Zosyn per pharmacy dosing. Will await cultures for offending organism may change plan of care as appropriate. 02/10/2019-continue Vanco and Zosyn. Pharmacy is dosing. Awaiting cultures are offending organism. (4) Hypokalemia Is this a current diagnosis for this admission?: Yes Plan: 02/09/2019-mild we will give 20 mEq of KCl p.o. times 1 repeat potassium level in a.m. 02/10/2019-potassium 3.1 this a.m. 40 mEq of KCl p.o. times 1 repeat potassium level in the a.m. - Time Time Spent with patient: 15-24 minutes - Inpatient Certification Based on my medical assessment, after consideration of the patient's comorbidities, presenting symptoms, or acuity I expect that the services needed warrant INPATIENT care.: Yes I certify that my determination is in accordance with my understanding of Medicare's requirements for reasonable and necessary INPATIENT services [42 CFR 412.3e].: Yes Medical Necessity: Other - Patient continues on IV antibiotics and oncology consultation.
--- NOTE | 2019-02-10 11:05 | PDOC CONSULTATION ---
Consultation Consult Date: 02/10/19 Provider Consulted: VIJAY BRANDON Consult reason:: Hematology Oncology consultation was requested for patient with AML and fever. History of Present Illness Admission Date/PCP: 02/09/19 18:12 VIJAY BRANDON MD History of Present Illness: KRISTOFER FLORES is a 68 year old female who was diagnosed with Uterine carcinoma 05/03/2017. She received Carboplatin, paclitaxel and radiation therapy and completed all treatments in October 2017. Since that time, she has had no evidence of recurrent disease. 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 She started chemotherapy with azacitadine and venotoclax and has now completed 3 cycles. However, counts did not fully recover after the last cycle. She presented to the ED yesterday with fever. She was found to have pneumonia and was started on antibiotics. This morning, she states that she had large amount of sweating last night, but no fever this morning. She has cough, but otherwise, is feeling well. Past Medical History Cardiac Medical History: Reports: Hypertension Denies: Coronary Artery Disease, Myocardial Infarction Pulmonary Medical History: Denies: Asthma, Bronchitis, Chronic Obstructive Pulmonary Disease (COPD), Pneumonia Neurological Medical History: Denies: Seizures Malignancy Medical History: Reports: Leukemia, Other - Uterine Cancer Musculoskeltal Medical History: Reports: Arthritis - GENERALIZED Psychiatric Medical History: Denies: Depression Hematology: Denies: Anemia Past Surgical History Past Surgical History: Reports: Hysterectomy, Other - Port placement Social History Information Source: Patient Lives with: Family - Lives with son who is her MPOA. Smoking Status: Never Smoker Frequency of Alcohol Use: None Hx Recreational Drug Use: No Drugs: None Hx Prescription Drug Abuse: No - Advance Directive Resuscitation Status: Full Code Family History Family History: None Parental Family History Reviewed: Yes Children Family History Reviewed: Yes Sibling(s) Family History Reviewed.: Yes Medication/Allergy Home Medications: Allopurinol [Zyloprim 300 mg Tablet] 300 mg PO DAILY 02/09/19 Amlodipine Besylate [Norvasc 10 mg Tablet] 10 mg PO DAILY 02/09/19 Lidocaine [Lidoderm 5% (700 mg) Transdermal Patch] 1 patch TOP DAILY MDD right knee 02/09/19 Magnesium Oxide [Mag-Ox 400 mg Tablet] 400 mg PO DAILY 02/09/19 Valacyclovir HCl [Valtrex 500 mg Tablet] 500 mg PO DAILY 02/09/19 Venetoclax [Venclexta] 100 mg PO Q12 02/09/19 Allergies/Adverse Reactions: morphine Allergy (Verified 02/09/19 15:03) Review of Systems Constitutional: PRESENT: chills, fever(s), night sweats Eyes: ABSENT: visual disturbances Ears: ABSENT: hearing changes Nose, Mouth, and Throat: ABSENT: sore throat Cardiovascular: ABSENT: chest pain Respiratory: PRESENT: cough Gastrointestinal: ABSENT: constipation, nausea Genitourinary: ABSENT: dysuria Integumentary: ABSENT: rash Neurological: PRESENT: weakness Hematologic/Lymphatic: ABSENT: easy bleeding Physical Exam Vital Signs: Temp Pulse Resp BP Pulse Ox 98.1 F 81 15 104/68 97 02/10/19 08:06 02/10/19 08:06 02/10/19 08:06 02/10/19 08:06 02/10/19 08:06 Intake & Output 02/09/19 02/10/19 02/11/19 06:59 06:59 06:59 Intake Total 1800 100 Balance 1800 100 Weight 84.6 kg General appearance: PRESENT: well-developed, well-nourished Exam: 68 year old female. Head exam: PRESENT: normocephalic Eye exam: PRESENT: EOMI, PERRLA Mouth exam: PRESENT: tongue midline Neck exam: ABSENT: lymphadenopathy, tenderness Respiratory exam: PRESENT: clear to auscultation luz, unlabored Cardiovascular exam: PRESENT: RRR. ABSENT: systolic murmur GI/Abdominal exam: PRESENT: normal bowel sounds, soft. ABSENT: tenderness Extremities exam: ABSENT: pedal edema Neurological exam: PRESENT: alert, awake Psychiatric exam: PRESENT: appropriate affect Skin exam: PRESENT: normal color Results Laboratory Results: 02/10/19 06:53 02/10/19 04:44 02/09/19 02/09/19 02/09/19 15:35 15:35 15:35 WBC 12.7 H RBC 2.50 L Hgb 8.4 L Hct 24.5 L MCV 98 H MCH 33.6 H MCHC 34.3 RDW 24.0 H Plt Count 41 L Seg Neutrophils % Not Reportable Lymphocytes % Not Reportable Monocytes % Not Reportable Eosinophils % Not Reportable Basophils % Not Reportable Absolute Neutrophils Not Reportable Absolute Lymphocytes Not Reportable Absolute Monocytes Not Reportable Absolute Eosinophils Not Reportable Absolute Basophils Not Reportable VBG pH VBG pCO2 VBG HCO3 VBG Base Excess Sodium 136.8 L Potassium 3.4 L Chloride 98 Carbon Dioxide 29 Anion Gap 10 BUN 17 Creatinine 0.87 Est GFR ( Amer) > 60 Est GFR (Non-Af Amer) > 60 Glucose 153 H Lactic Acid 1.6 Calcium 9.8 Total Bilirubin 1.2 AST 53 H ALT 29 Alkaline Phosphatase 89 Total Protein 6.4 Albumin 3.7 Urine Color Urine Appearance Urine pH Ur Specific [place] Urine Protein Urine Glucose (UA) Urine Ketones Urine Blood Urine Nitrite Ur Leukocyte Esterase Urine WBC (Auto) Urine RBC (Auto) 02/09/19 02/09/19 02/10/19 15:35 17:24 04:44 WBC Cancelled RBC Cancelled Hgb Cancelled Hct Cancelled MCV Cancelled MCH Cancelled MCHC Cancelled RDW Cancelled Plt Count Cancelled Seg Neutrophils % Cancelled Lymphocytes % Cancelled Monocytes % Cancelled Eosinophils % Cancelled Basophils % Cancelled Absolute Neutrophils Cancelled Absolute Lymphocytes Cancelled Absolute Monocytes Cancelled Absolute Eosinophils Cancelled Absolute Basophils Cancelled VBG pH 7.43 H VBG pCO2 46.4 VBG HCO3 30.4 VBG Base Excess 5.6 Sodium Potassium Chloride Carbon Dioxide Anion Gap BUN Creatinine Est GFR ( Amer) Est GFR (Non-Af Amer) Glucose Lactic Acid Calcium Total Bilirubin AST ALT Alkaline Phosphatase Total Protein Albumin Urine Color YELLOW Urine Appearance CLEAR Urine pH 6.0 Ur Specific [place] 1.015 Urine Protein 30 H Urine Glucose (UA) NEGATIVE Urine Ketones NEGATIVE Urine Blood NEGATIVE Urine Nitrite NEGATIVE Ur Leukocyte Esterase TRACE H Urine WBC (Auto) 9 Urine RBC (Auto) 1 02/10/19 02/10/19 04:44 06:53 WBC 14.3 H RBC 1.94 L Hgb 7.2 L Hct 20.1 L MCV 103 H D MCH 36.9 H MCHC 35.7 RDW 23.6 H Plt Count 29 L* Seg Neutrophils % Not Reportable Lymphocytes % Not Reportable Monocytes % Not Reportable Eosinophils % Not Reportable Basophils % Not Reportable Absolute Neutrophils Not Reportable Absolute Lymphocytes Not Reportable Absolute Monocytes Not Reportable Absolute Eosinophils Not Reportable Absolute Basophils Not Reportable VBG pH VBG pCO2 VBG HCO3 VBG Base Excess Sodium 137.5 Potassium 3.1 L Chloride 105 Carbon Dioxide 28 Anion Gap 5 BUN 16 Creatinine 0.87 Est GFR ( Amer) > 60 Est GFR (Non-Af Amer) > 60 Glucose 120 H Lactic Acid Calcium 8.6 Total Bilirubin AST ALT Alkaline Phosphatase Total Protein Albumin Urine Color Urine Appearance Urine pH Ur Specific [place] Urine Protein Urine Glucose (UA) Urine Ketones Urine Blood Urine Nitrite Ur Leukocyte Esterase Urine WBC (Auto) Urine RBC (Auto) 02/09/19 15:35 Troponin I < 0.012 Impressions: Chest X-Ray 02/09/19 15:03 IMPRESSION: Small area of airspace disease in the left lateral lung base. Small bilateral pleural effusions. 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 Sadly, her AML has relapsed and there are blasts in the smear. I do not believe she is a candidate for further therapy, but have left a message with Dr. Cameron Lima at [facility] for his opinion as well. I believe she is a great candidate for Hospice. I discussed this with her, but she would like to discuss further with her son, who is on vacation in [place] for the next 5 days. I expect her PLT and HGB to continue to be very low, but would NOT transfuse blood or PLT unless absolutely necessary. Patient does not believe she needs a transfusion today. I agree. (2) Pneumonia Qualifiers: Pneumonia type: due to unspecified organism Laterality: unspecified laterality Lung location: unspecified part of lung Qualified Code(s): J18.9 - Pneumonia, unspecified organism Is this a current diagnosis for this admission?: Yes Plan: She is not neutropenic. This is a community acquired pneumonia. I will stop the vancomycin today. Hopefully, she will be able to go home once fevers resolve. However, this may also be a leukemia fever. Will continue ABX at least over the next 48 hours, and await culture results. However, I will change from pipericillin to Cefapime due to the low blood counts. - Plan Summary Plan Summary: I discussed code status with the patient, but she will wait and and discuss with family. I have offered to call and speak with family, but patient requests that I do not do this and she be allowed to tell them everything.
[2019-02-10] MEDS ORDERED: POTASSIUM CHLORIDE 20 MEQ PACKET PO ONE (11:30)
[2019-02-10 12:07] LABS: FOLATE > 20.00 ng/mL (>2.76)
[2019-02-10] MEDS: CEFEPIME 1 GM/D5W RTU 1 GM/50 ML RTUPB IV SCH (22:23)
[2019-02-11] MEDS: IBUPROFEN 800 MG TABLET PO PRN (00:03)
[2019-02-11 05:50] LABS: HEMATOCRIT 19.6 % (36.0-47.0); MEAN CORPUSCULAR HEMOGLOBIN 34.3 pg (27.0-33.4); MEAN CORPUSCULAR HGB CONC 34.3 g/dL (32.0-36.0); MEAN CORPUSCULAR VOLUME 100 fl (80-97); RED BLOOD COUNT 1.95 10^6/uL (3.72-5.28); RED CELL DISTRIBUTION WIDTH 24.5 % (11.5-14.0)
[2019-02-11 06:05] LABS: WHITE BLOOD COUNT 11.2 10^3/uL (4.0-10.5)
[2019-02-11 06:07] LABS: ABSOLUTE LYMPHOCYTES# (MANUAL) 2.1 10^3/uL (0.5-4.7); ABSOLUTE MONOCYTES # (MANUAL) 5.7 10^3/uL (0.1-1.4); BAND NEUTROPHILS % (MANUAL) 1 % (3-5); BASOPHILS % (MANUAL) 0 % (0-2); EOSINOPHILS % (MANUAL) 0 % (0-6); LYMPHOCYTES % (MANUAL) 19 % (13-45); METAMYELOCYTES % (MANUAL) 1 % (0); MONOCYTES % (MANUAL) 51 % (3-13); PLATELET COMMENT DECREASED; SEGMENTED NEUTROPHILS % (MAN) 21 % (42-78); TOTAL CELLS COUNTED 100
[2019-02-11 06:08] LABS: ANISOCYTOSIS 3+; POIKILOCYTOSIS 1+; POLYCHROMASIA 1+
[2019-02-11 06:10] LABS: HEMOGLOBIN 6.7 g/dL (12.0-15.5); IMMATURE MONONUCLEAR% (MANUAL) 7 % (0); PLATELET COUNT 27 10^3/uL (150-450)
[2019-02-11 06:11] LABS: NUCLEATED RED BLOOD CELLS 12 /100 WBC (0)
[2019-02-11 06:14] LABS: SCHISTOCYTES SLIGHT
[2019-02-11 06:15] LABS: BLOOD UREA NITROGEN 12 mg/dL (7-20); CALCIUM 8.8 mg/dL (8.4-10.2); CHLORIDE 106 mmol/L (98-107); GLUCOSE 121 mg/dL (75-110); POTASSIUM 3.4 mmol/L (3.6-5.0)
[2019-02-11 06:21] LABS: ANION GAP 4 (5-19); CARBON DIOXIDE 28 mmol/L (22-30); SODIUM 138.4 mmol/L (137-145)
[2019-02-11] MEDS: CEFEPIME 1 GM/D5W RTU 1 GM/50 ML RTUPB IV SCH (09:18)
--- NOTE | 2019-02-11 12:00 | PDOC PROGRESS REPORT ---
Subjective Progress Note for:: 02/11/19 Subjective:: 02/10/2019-sitting on side of bed with no signs of acute distress this time. States no complaints. States she did have several bouts where her fever would fluctuate throughout the night. 02/11/2019-No complaints at this time. Reason For Visit: FEVER Physical Exam Vital Signs: Temp Pulse Resp BP Pulse Ox 98.0 F 88 18 108/66 100 02/11/19 08:00 02/11/19 08:00 02/11/19 08:00 02/11/19 08:00 02/11/19 08:00 Intake & Output 02/10/19 02/11/19 02/12/19 06:59 06:59 06:59 Intake Total 1800 1960 50 Output Total 1520 Balance 1800 440 50 Weight 84.6 kg 90.2 kg General appearance: PRESENT: no acute distress, well-developed, well-nourished Head exam: PRESENT: atraumatic, normocephalic Eye exam: PRESENT: conjunctiva pink, EOMI, PERRLA. ABSENT: scleral icterus Ear exam: PRESENT: normal external ear exam Mouth exam: PRESENT: moist, tongue midline Neck exam: ABSENT: carotid bruit, JVD, lymphadenopathy, thyromegaly Respiratory exam: PRESENT: clear to auscultation luz. ABSENT: rales, rhonchi, wheezes Cardiovascular exam: PRESENT: RRR. ABSENT: diastolic murmur, rubs, systolic murmur Pulses: PRESENT: normal dorsalis pedis pul Vascular exam: PRESENT: normal capillary refill GI/Abdominal exam: PRESENT: normal bowel sounds, soft. ABSENT: distended, guarding, mass, organolmegaly, rebound, tenderness Rectal exam: PRESENT: deferred Extremities exam: PRESENT: full ROM. ABSENT: calf tenderness, clubbing, pedal edema Neurological exam: PRESENT: alert, awake, oriented to person, oriented to place, oriented to time, oriented to situation, CN II-XII grossly intact. ABSENT: motor sensory deficit Psychiatric exam: PRESENT: appropriate affect, normal mood. ABSENT: homicidal ideation, suicidal ideation Skin exam: PRESENT: dry, intact, warm. ABSENT: cyanosis, rash Results Laboratory Results: 02/11/19 05:00 02/11/19 05:00 02/10/19 02/10/19 02/11/19 04:44 20:45 05:00 WBC 11.2 H RBC 1.95 L Hgb 6.7 L Hct 19.6 L MCV 100 H MCH 34.3 H MCHC 34.3 RDW 24.5 H Plt Count 27 L* Seg Neutrophils % Not Reportable Lymphocytes % Not Reportable Monocytes % Not Reportable Eosinophils % Not Reportable Basophils % Not Reportable Absolute Neutrophils Not Reportable Absolute Lymphocytes Not Reportable Absolute Monocytes Not Reportable Absolute Eosinophils Not Reportable Absolute Basophils Not Reportable Sodium Potassium Chloride Carbon Dioxide Anion Gap BUN Creatinine Est GFR ( Amer) Est GFR (Non-Af Amer) Glucose Calcium Vitamin B12 327.0 Folate > 20.00 Stool Occult Blood NEGATIVE 02/11/19 05:00 WBC RBC Hgb Hct MCV MCH MCHC RDW Plt Count Seg Neutrophils % Lymphocytes % Monocytes % Eosinophils % Basophils % Absolute Neutrophils Absolute Lymphocytes Absolute Monocytes Absolute Eosinophils Absolute Basophils Sodium 138.4 Potassium 3.4 L Chloride 106 Carbon Dioxide 28 Anion Gap 4 L BUN 12 Creatinine 0.87 Est GFR ( Amer) > 60 Est GFR (Non-Af Amer) > 60 Glucose 121 H Calcium 8.8 Vitamin B12 Folate Stool Occult Blood 02/09/19 15:35 Troponin I < 0.012 Impressions: Chest X-Ray 02/09/19 15:03 IMPRESSION: Small area of airspace disease in the left lateral lung base. Small bilateral pleural effusions. Assessment and Plan - Diagnosis (1) Fever Qualifiers: Fever type: unspecified Qualified Code(s): R50.9 - Fever, unspecified Is this a current diagnosis for this admission?: Yes Plan: 02/09/2019-unknown etiology at this time. Patient did have blood cultures and u rine culture sent from the ER. Was started on vancomycin and Zosyn which I will continue at this time. I will have pharmacy dose both antibiotics. Patient does have AML and I will consult Dr. Mcclendon for further evaluation and treatment. 02/10/2019-awaiting cultures. Patient continues on vancomycin and Zosyn at this time. Awaiting consultation from Dr. Mcclendon for further evaluation and treatment . 02/11/2019-Cultures return with gram positive cocci. Will defer to Dr. Mcclendon for treatment. 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 Mcclendon for further evaluation and treatment 02/10/2019-awaiting oncology eval. 02/11/2019-Leukemia has returned. Treatment plan deferred to Dr. Mcclendon. (3) Pneumonia Qualifiers: Pneumonia type: due to unspecified organism Laterality: unspecified laterality Lung location: unspecified part of lung Qualified Code(s): J18.9 - Pneumonia, unspecified organism Is this a current diagnosis for this admission?: Yes Plan: 02/09/2019-vancomycin and Zosyn per pharmacy dosing. Will await cultures for offending organism may change plan of care as appropriate. 02/10/2019-continue Vanco and Zosyn. Pharmacy is dosing. Awaiting cultures are offending organism. 02/11/2019-Will discuss with Dr. Mcclendon as to treatment plan. (4) Hypokalemia Is this a current diagnosis for this admission?: Yes Plan: 02/09/2019-mild we will give 20 mEq of KCl p.o. times 1 repeat potassium level in a.m. 02/10/2019-potassium 3.1 this a.m. 40 mEq of KCl p.o. times 1 repeat potassium level in the a.m. 02/11/2019-potassium 3.4. 20meq po x 1. repeat bmp in am. - Time Time Spent with patient: 15-24 minutes - Inpatient Certification Based on my medical assessment, after consideration of the patient's comorbidities, presenting symptoms, or acuity I expect that the services needed warrant INPATIENT care.: Yes I certify that my determination is in accordance with my understanding of [employer] 's requirements for reasonable and necessary INPATIENT services [42 CFR 412.3e].: Yes Medical Necessity: Other - IV ABX and oncology
[2019-02-11] MEDS ORDERED: POTASSIUM CHLORIDE 10 MEQ CAPSULE.ER PO ONE (12:30)
[2019-02-11] MEDS ORDERED: VANCOMYCIN HCL INJ 500 MG VIAL IV ONE (12:39)
[2019-02-11] MEDS ORDERED: POTASSIUM CHLORIDE 20 MEQ PACKET PO ONE (13:30)
--- NOTE | 2019-02-11 15:57 | PDOC PROGRESS REPORT ---
Subjective Progress Note for:: 02/11/19 Subjective:: Patient states that she is feeling well. She does not feel weak or tired, as though she needs a blood transfusion. She has many questions, and is worried about further treatment and life expectancy. Her daughter is at bedside today. ROS: denies dyspnea or constipation. Some difficulty sleeping. Reason For Visit: FEVER Physical Exam Vital Signs: Temp Pulse Resp BP Pulse Ox 98.0 F 90 19 125/62 100 02/11/19 12:00 02/11/19 12:00 02/11/19 12:00 02/11/19 12:00 02/11/19 12:00 Intake & Output 02/10/19 02/11/19 02/12/19 06:59 06:59 06:59 Intake Total 1800 1960 550 Output Total 1520 Balance 1800 440 550 Weight 84.6 kg 90.2 kg General appearance: PRESENT: no acute distress, well-developed, well-nourished Head exam: PRESENT: normocephalic Respiratory exam: PRESENT: unlabored Extremities exam: ABSENT: pedal edema Neurological exam: PRESENT: alert, awake, other - Sitting up on side of bed eating. Psychiatric exam: PRESENT: appropriate affect Skin exam: PRESENT: normal color Results Laboratory Results: 02/11/19 05:00 02/11/19 05:00 02/10/19 02/11/19 02/11/19 20:45 05:00 05:00 WBC 11.2 H RBC 1.95 L Hgb 6.7 L Hct 19.6 L MCV 100 H MCH 34.3 H MCHC 34.3 RDW 24.5 H Plt Count 27 L* Seg Neutrophils % Not Reportable Lymphocytes % Not Reportable Monocytes % Not Reportable Eosinophils % Not Reportable Basophils % Not Reportable Absolute Neutrophils Not Reportable Absolute Lymphocytes Not Reportable Absolute Monocytes Not Reportable Absolute Eosinophils Not Reportable Absolute Basophils Not Reportable Sodium 138.4 Potassium 3.4 L Chloride 106 Carbon Dioxide 28 Anion Gap 4 L BUN 12 Creatinine 0.87 Est GFR ( Amer) > 60 Est GFR (Non-Af Amer) > 60 Glucose 121 H Calcium 8.8 Stool Occult Blood NEGATIVE 02/09/19 17:24 Clean Catch Midstream Urine Culture - Final NO GROWTH 2 DAYS 02/09/19 15:35 Troponin I < 0.012 Impressions: Chest X-Ray 02/09/19 15:03 IMPRESSION: Small area of airspace disease in the left lateral lung base. Small bilateral pleural effusions. 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 Lima to see if there is anything else they have to offer her. If not, then she is appropriate for Hospice. Her blood counts are much worse, but will hold off transfusions until she is symptomatic. (2) Pneumonia Qualifiers: Pneumonia type: due to unspecified organism Laterality: unspecified laterality Lung location: unspecified part of lung Qualified Code(s): J18.9 - Pneumonia, unspecified organism Is this a current diagnosis for this admission?: Yes Plan: Gram Positive Cocci growing in blood. Vanc will be re-added pending sensativities. Fever now resolved.
[2019-02-11] MEDS ORDERED: NORMAL SALINE 250 ML IV PRN (16:34)
[2019-02-11] MEDS: VANCOMYCIN HCL 750 MG in DEXTROSE 5%-WATER 250 ML IV SCH (17:29)
[2019-02-11] MEDS ORDERED: CEFEPIME 1 GM/D5W RTU 1 GM/50 ML RTUPB IV SCH (22:00)
[2019-02-11] MEDS ORDERED: CEFEPIME 1 GM/D5W RTU 1 GM/50 ML RTUPB IV ONE (23:00)
[2019-02-12] MEDS: IBUPROFEN 800 MG TABLET PO PRN (02:05)
[2019-02-12] MEDS: VANCOMYCIN HCL 750 MG in DEXTROSE 5%-WATER 250 ML IV SCH ×2 (06:17→17:31)
[2019-02-12 07:19] LABS: HEMATOCRIT 22.8 % (36.0-47.0); MEAN CORPUSCULAR HEMOGLOBIN 34.6 pg (27.0-33.4); MEAN CORPUSCULAR HGB CONC 34.2 g/dL (32.0-36.0); MEAN CORPUSCULAR VOLUME 101 fl (80-97); RED BLOOD COUNT 2.26 10^6/uL (3.72-5.28); RED CELL DISTRIBUTION WIDTH 22.3 % (11.5-14.0); WHITE BLOOD COUNT 12.2 10^3/uL (4.0-10.5)
[2019-02-12 07:30] LABS: ANION GAP 5 (5-19); BLOOD UREA NITROGEN 8 mg/dL (7-20); CALCIUM 7.1 mg/dL (8.4-10.2); CARBON DIOXIDE 24 mmol/L (22-30); CHLORIDE 113 mmol/L (98-107); GLUCOSE 92 mg/dL (75-110); SODIUM 141.8 mmol/L (137-145)
[2019-02-12 07:32] LABS: POTASSIUM 2.9 mmol/L (3.6-5.0)
[2019-02-12 07:53] LABS: ABSOLUTE LYMPHOCYTES# (MANUAL) 1.7 10^3/uL (0.5-4.7); ABSOLUTE MONOCYTES # (MANUAL) 5.1 10^3/uL (0.1-1.4); BAND NEUTROPHILS % (MANUAL) 1 % (3-5); BASOPHILS % (MANUAL) 0 % (0-2); EOSINOPHILS % (MANUAL) 0 % (0-6); IMMATURE MONONUCLEAR% (MANUAL) 7 % (0); LYMPHOCYTES % (MANUAL) 14 % (13-45); MONOCYTES % (MANUAL) 42 % (3-13); NUCLEATED RED BLOOD CELLS 3 /100 WBC (0); SEGMENTED NEUTROPHILS % (MAN) 36 % (42-78); TOTAL CELLS COUNTED 100
[2019-02-12 08:02] LABS: ANISOCYTOSIS 3+; OVALOCYTES SLIGHT; PLATELET COMMENT DECREASED; POIKILOCYTOSIS SLIGHT; POLYCHROMASIA SLIGHT; SCHISTOCYTES SLIGHT
[2019-02-12 08:04] LABS: HEMOGLOBIN 7.8 g/dL (12.0-15.5)
[2019-02-12 08:11] LABS: PLATELET COUNT 19 10^3/uL (150-450)
[2019-02-12] MEDS: POTASSIUM CHLORIDE 20 MEQ PACKET PO SCH ×2 (08:37→13:33)
[2019-02-12] MEDS ORDERED: ONDANSETRON 4 MG TAB.RAPDIS PO PRN (09:00)
--- NOTE | 2019-02-12 09:16 | PDOC PROGRESS REPORT ---
Subjective Progress Note for:: 02/12/19 Subjective:: Patient without new complaints this morning. She still has a cough but it is getting better. No pain. No difficulty with blood transfusion yesterday. Her strength is good. She asks again about plans with [facility]. Reason For Visit: FEVER Physical Exam Vital Signs: Temp Pulse Resp BP Pulse Ox 98.4 F 89 14 133/78 H 98 02/12/19 05:46 02/12/19 05:46 02/12/19 05:46 02/12/19 05:46 02/12/19 05:46 Intake & Output 02/11/19 02/12/19 02/13/19 06:59 06:59 06:59 Intake Total 1960 2410 Output Total 1520 900 Balance 440 1510 Weight 90.2 kg 90.7 kg General appearance: PRESENT: no acute distress Head exam: PRESENT: normocephalic Respiratory exam: PRESENT: unlabored Extremities exam: ABSENT: pedal edema Neurological exam: PRESENT: alert, awake Psychiatric exam: PRESENT: appropriate affect Skin exam: PRESENT: normal color Results Laboratory Results: 02/12/19 07:00 02/12/19 07:00 02/11/19 02/12/19 02/12/19 17:00 07:00 07:00 WBC 12.2 H RBC 2.26 L Hgb 7.8 L Hct 22.8 L MCV 101 H MCH 34.6 H MCHC 34.2 RDW 22.3 H Plt Count 19 L* Seg Neutrophils % Not Reportable Lymphocytes % Not Reportable Monocytes % Not Reportable Eosinophils % Not Reportable Basophils % Not Reportable Absolute Neutrophils Not Reportable Absolute Lymphocytes Not Reportable Absolute Monocytes Not Reportable Absolute Eosinophils Not Reportable Absolute Basophils Not Reportable Sodium 141.8 Potassium 2.9 L* Chloride 113 H Carbon Dioxide 24 Anion Gap 5 BUN 8 Creatinine 0.58 Est GFR ( Amer) > 60 Est GFR (Non-Af Amer) > 60 Glucose 92 Calcium 7.1 L Blood Type O POSITIVE Antibody Screen NEGATIVE 02/09/19 17:24 Clean Catch Midstream Urine Culture - Final NO GROWTH 2 DAYS 02/09/19 15:35 Troponin I < 0.012 Impressions: Chest X-Ray 02/09/19 15:03 IMPRESSION: Small area of airspace disease in the left lateral lung base. Small bilateral pleural effusions. 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 Mccarthy from [facility]. SHe and Dr. Lima will make further recommendations this morning and let me know if they want to arrange facility to facility transfer. I will await their recommendations. No further treatment for the AML until I hear from them. (2) Pneumonia Qualifiers: Pneumonia type: due to unspecified organism Laterality: unspecified laterality Lung location: unspecified part of lung Qualified Code(s): J18.9 - Pneumonia, unspecified organism Is this a current diagnosis for this admission?: Yes Plan: Continue Cefapime and Vanc. 1 blood culture was positive for G+ cocci, but none others. - Plan Summary Plan Summary: I spoke with Dr. Chao, hospitalist about the patient this morning.
[2019-02-12] MEDS: AMLODIPINE BESYLATE 10 MG TABLET PO SCH (09:39)
[2019-02-12] MEDS: MAGNESIUM OXIDE 400 MG TABLET PO SCH (09:39)
[2019-02-12] MEDS: CEFEPIME 1 GM/D5W RTU 1 GM/50 ML RTUPB IV SCH ×2 (09:40→22:04)
[2019-02-12] MEDS: ALLOPURINOL 300 MG TABLET PO SCH (09:40)
[2019-02-12] MEDS: VALACYCLOVIR HCL 500 MG TABLET PO SCH (09:40)
[2019-02-12] MEDS ORDERED: VENETOCLAX 100 MG PO SCH ×2 (10:00)
[2019-02-12 11:44] LABS: PATH REVIEW PATHOLOGIST REVIEWED
[2019-02-12 11:44] LABS: PATH REVIEW PATHOLOGIST REVIEWED
[2019-02-12 11:45] LABS: PATH REVIEW PATHOLOGIST REVIEWED
--- NOTE | 2019-02-12 11:49 | Progress Note Acknowledgement ---
Progress Note Acknowledgement Progess Note Acknowledgement: I, the undersigned member of the medical staff with appropriate privileges and with supervisory authority over [Jaylen Chao ], a dependent practice allied health professional, acknowledge that I have reviewed the progress notes entered on this patient, and in my professional judgment believe that the assessment made and/or any care evidenced was appropriate
--- NOTE | 2019-02-12 11:56 | PDOC PROGRESS REPORT ---
Subjective Progress Note for:: 02/12/19 Subjective:: 02/10/2019-sitting on side of bed with no signs of acute distress this time. States no complaints. States she did have several bouts where her fever would fluctuate throughout the night. 02/11/2019-No complaints at this time. 02/12/2019-complains of cough and anxiety. Reason For Visit: FEVER Physical Exam Vital Signs: Temp Pulse Resp BP Pulse Ox 98.1 F 87 22 H 143/84 H 99 02/12/19 08:00 02/12/19 08:00 02/12/19 08:00 02/12/19 08:00 02/12/19 08:00 Intake & Output 02/11/19 02/12/19 02/13/19 06:59 06:59 06:59 Intake Total 1960 2410 300 Output Total 1520 900 Balance 440 1510 300 Weight 90.2 kg 90.7 kg General appearance: PRESENT: no acute distress, well-developed, well-nourished Head exam: PRESENT: atraumatic, normocephalic Eye exam: PRESENT: conjunctiva pink, EOMI, PERRLA. ABSENT: scleral icterus Ear exam: PRESENT: normal external ear exam Mouth exam: PRESENT: moist, tongue midline Neck exam: ABSENT: carotid bruit, JVD, lymphadenopathy, thyromegaly Respiratory exam: PRESENT: clear to auscultation luz. ABSENT: rales, rhonchi, wheezes Cardiovascular exam: PRESENT: RRR. ABSENT: diastolic murmur, rubs, systolic murmur Pulses: PRESENT: normal dorsalis pedis pul Vascular exam: PRESENT: normal capillary refill GI/Abdominal exam: PRESENT: normal bowel sounds, soft. ABSENT: distended, guarding, mass, organolmegaly, rebound, tenderness Rectal exam: PRESENT: deferred Extremities exam: PRESENT: full ROM, pedal edema, +2 edema. ABSENT: calf tenderness, clubbing Neurological exam: PRESENT: alert, awake, oriented to person, oriented to place, oriented to time, oriented to situation, CN II-XII grossly intact. ABSENT: motor sensory deficit Psychiatric exam: PRESENT: appropriate affect, normal mood. ABSENT: homicidal ideation, suicidal ideation Skin exam: PRESENT: dry, intact, warm. ABSENT: cyanosis, rash Results Laboratory Results: 02/12/19 07:00 02/12/19 07:00 02/11/19 02/12/19 02/12/19 17:00 07:00 07:00 WBC 12.2 H RBC 2.26 L Hgb 7.8 L Hct 22.8 L MCV 101 H MCH 34.6 H MCHC 34.2 RDW 22.3 H Plt Count 19 L* Seg Neutrophils % Not Reportable Lymphocytes % Not Reportable Monocytes % Not Reportable Eosinophils % Not Reportable Basophils % Not Reportable Absolute Neutrophils Not Reportable Absolute Lymphocytes Not Reportable Absolute Monocytes Not Reportable Absolute Eosinophils Not Reportable Absolute Basophils Not Reportable Sodium 141.8 Potassium 2.9 L* Chloride 113 H Carbon Dioxide 24 Anion Gap 5 BUN 8 Creatinine 0.58 Est GFR ( Amer) > 60 Est GFR (Non-Af Amer) > 60 Glucose 92 Calcium 7.1 L Blood Type O POSITIVE Antibody Screen NEGATIVE 02/09/19 15:38 Blood Blood Culture - Final Staphylococcus Simulans 02/09/19 17:24 Clean Catch Midstream Urine Culture - Final NO GROWTH 2 DAYS 02/09/19 15:35 Troponin I < 0.012 Impressions: Chest X-Ray 02/09/19 15:03 IMPRESSION: Small area of airspace disease in the left lateral lung base. Small bilateral pleural effusions. Assessment and Plan - Diagnosis (1) Fever Qualifiers: Fever type: unspecified Qualified Code(s): R50.9 - Fever, unspecified Is this a current diagnosis for this admission?: Yes Plan: 02/09/2019-unknown etiology at this time. Patient did have blood cultures and urine culture sent from the ER. Was started on vancomycin and Zosyn which I will continue at this time. I will have pharmacy dose both antibiotics. Eber godwin does have AML and I will consult Dr. Mcclendon for further evaluation and treatment. 02/10/2019-awaiting cultures. Patient continues on vancomycin and Zosyn at this time. Awaiting consultation from Dr. Mcclendon for further evaluation and treatment. 02/11/2019-Cultures return with gram positive cocci. Will defer to Dr. Mcclendon for treatment. February 12, 2019-continue to wait for sensitivities. Continue vancomycin and cefepime. We will continue to follow with Dr. Weiss in consultation. 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 Mcclendon for further evaluation and treatment 02/10/2019-awaiting oncology eval. 02/11/2019-Leukemia has returned. Treatment plan deferred to Dr. Mcclendon. February 12-Dr. Mcclendon is talked with [facility] about possible transfer. We will continue to follow and transfer if deemed appropriate. (3) Pneumonia Qualifiers: Pneumonia type: due to unspecified organism Laterality: unspecified laterality Lung location: unspecified part of lung Qualified Code(s): J18.9 - Pneumonia, unspecified organism Is this a current diagnosis for this admission?: Yes Plan: 02/09/2019-vancomycin and Zosyn per pharmacy dosing. Will await cultures for offending organism may change plan of care as appropriate. 02/10/2019-continue Vanco and Zosyn. Pharmacy is dosing. Awaiting cultures are offending organism. 02/11/2019-Will discuss with Dr. Mcclendon as to treatment plan. February 12-continuing vancomycin and cefepime. Await culture pending orders make changes plan of care as appropriate. (4) Hypokalemia Is this a current diagnosis for this admission?: Yes Plan: 02/09/2019-mild we will give 20 mEq of KCl p.o. times 1 repeat potassium level in a.m. 02/10/2019-potassium 3.1 this a.m. 40 mEq of KCl p.o. times 1 repeat potassium level in the a.m. 02/11/2019-potassium 3.4. 20meq po x 1. repeat bmp in am. February 12, 2019-potassium 2.9 this a.m. Potassium chloride 40 mEq p.o. x2 doses today repeat BMP in the a.m. (5) Cough Is this a current diagnosis for this admission?: Yes Plan: February 12-patient having a dry hacking cough this morning. Tessalon Perles 100 mg p.o. 3 times daily as needed. (6) Anxiety Is this a current diagnosis for this admission?: Yes Plan: February 12-patient exhibiting a lot of anxiety at this time. We will place her on Xanax 0.5 mg 1 p.o. 3 times daily patient scheduled. Adjust as needed. - Time Time Spent with patient: 15-24 minutes Anticipated discharge: Hospice - Inpatient Certification Based on my medical assessment, after consideration of the patient's comorbidities, presenting symptoms, or acuity I expect that the services needed warrant INPATIENT care.: Yes I certify that my determination is in accordance with my understanding of Medicare's requirements for reasonable and necessary INPATIENT services [42 CFR 412.3e].: Yes Medical Necessity: Other - Continue IV antibiotics and possible transfer for chemotherapy.
[2019-02-12] MEDS: ALPRAZOLAM 0.5 MG TABLET PO SCH ×3 (13:27→17:38)
[2019-02-12] MEDS: BENZONATATE 100 MG CAPSULE PO PRN (13:32)
[2019-02-12 15:50] LABS: HEMATOCRIT 28.2 % (36.0-47.0); HEMOGLOBIN 9.8 g/dL (12.0-15.5); MEAN CORPUSCULAR HEMOGLOBIN 33.5 pg (27.0-33.4); MEAN CORPUSCULAR HGB CONC 34.8 g/dL (32.0-36.0); RED BLOOD COUNT 2.93 10^6/uL (3.72-5.28); RED CELL DISTRIBUTION WIDTH 22.8 % (11.5-14.0); WHITE BLOOD COUNT 13.4 10^3/uL (4.0-10.5)
[2019-02-12 16:07] LABS: MEAN CORPUSCULAR VOLUME 96 fl (80-97)
[2019-02-12 16:09] LABS: BLOOD UREA NITROGEN 9 mg/dL (7-20); CALCIUM 9.3 mg/dL (8.4-10.2); GLUCOSE 159 mg/dL (75-110); PLATELET COUNT 17 10^3/uL (150-450)
[2019-02-12 16:14] LABS: ANION GAP 5 (5-19); CARBON DIOXIDE 29 mmol/L (22-30); CHLORIDE 107 mmol/L (98-107); SODIUM 140.9 mmol/L (137-145)
[2019-02-12 16:19] LABS: ABSOLUTE LYMPHOCYTES# (MANUAL) 2.3 10^3/uL (0.5-4.7); ABSOLUTE MONOCYTES # (MANUAL) 5.9 10^3/uL (0.1-1.4); BASOPHILS % (MANUAL) 0 % (0-2); EOSINOPHILS % (MANUAL) 0 % (0-6); LYMPHOCYTES % (MANUAL) 17 % (13-45); MONOCYTES % (MANUAL) 44 % (3-13); NUCLEATED RED BLOOD CELLS 3 /100 WBC (0); SEGMENTED NEUTROPHILS % (MAN) 39 % (42-78); TOTAL CELLS COUNTED 100
[2019-02-12 16:21] LABS: ANISOCYTOSIS 3+; OVALOCYTES SLIGHT; PLATELET COMMENT DECREASED; POIKILOCYTOSIS SLIGHT; POLYCHROMASIA SLIGHT; TOXIC VACUOLATION PRESENT
[2019-02-12 16:24] LABS: POTASSIUM 5.2 mmol/L (3.6-5.0)
[2019-02-12] MEDS ORDERED: ALPRAZOLAM 0.5 MG TABLET PO PRN (17:45)
[2019-02-13] MEDS: VANCOMYCIN HCL 750 MG in DEXTROSE 5%-WATER 250 ML IV SCH ×2 (05:13→18:17)
[2019-02-13 06:46] LABS: VANCOMYCIN,TROUGH 15.3 ug/mL (5.0-20.0)
[2019-02-13] MEDS: BENZONATATE 100 MG CAPSULE PO PRN ×2 (08:19→21:22)
[2019-02-13] MEDS ORDERED: PHENOL/SODIUM PHENOLATE 100 SPRAY/177 ML BOTTLE PO PRN (08:30)
--- NOTE | 2019-02-13 08:30 | PDOC PROGRESS REPORT ---
Subjective Progress Note for:: 02/13/19 Subjective:: PAtient is still complaining of neck pain and sore throat, as well as some cough. No change. ROS: No dyspnea. No nausea. Reason For Visit: FEVER Physical Exam Vital Signs: Temp Pulse Resp BP Pulse Ox 98.2 F 93 16 130/72 H 99 02/13/19 00:15 02/13/19 00:15 02/12/19 20:32 02/13/19 00:15 02/13/19 00:15 Intake & Output 02/12/19 02/13/19 02/14/19 06:59 06:59 06:59 Intake Total 2410 1737 250 Output Total 900 450 Balance 1510 1287 250 Weight 90.7 kg 90.2 kg General appearance: PRESENT: no acute distress, well-developed, well-nourished Head exam: PRESENT: normocephalic Neck exam: ABSENT: lymphadenopathy, tenderness Respiratory exam: PRESENT: clear to auscultation luz, unlabored Cardiovascular exam: PRESENT: RRR Extremities exam: PRESENT: +1 edema Neurological exam: PRESENT: alert, awake Psychiatric exam: PRESENT: appropriate affect Skin exam: PRESENT: normal color Results Laboratory Results: 02/12/19 15:25 02/13/19 04:46 02/12/19 02/12/19 02/13/19 15:25 15:25 04:46 WBC 13.4 H RBC 2.93 L Hgb 9.8 L Hct 28.2 L MCV 96 D MCH 33.5 H MCHC 34.8 RDW 22.8 H Plt Count 17 L* Seg Neutrophils % Not Reportable Lymphocytes % Not Reportable Monocytes % Not Reportable Eosinophils % Not Reportable Basophils % Not Reportable Absolute Neutrophils Not Reportable Absolute Lymphocytes Not Reportable Absolute Monocytes Not Reportable Absolute Eosinophils Not Reportable Absolute Basophils Not Reportable Sodium 140.9 Potassium 5.2 H D Chloride 107 Carbon Dioxide 29 Anion Gap 5 BUN 9 Creatinine 0.81 0.77 Est GFR ( Amer) > 60 > 60 Est GFR (Non-Af Amer) > 60 > 60 Glucose 159 H Calcium 9.3 02/09/19 15:38 Blood Blood Culture - Final Staphylococcus Simulans 02/09/19 15:35 Troponin I < 0.012 Impressions: Chest X-Ray 02/09/19 15:03 IMPRESSION: Small area of airspace disease in the left lateral lung base. Small bilateral pleural effusions. 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 Lima at [facility] yesterday. He would like further testing on her leukemia before making any other recommendations. I have arranged for these labs to be drawn and sent to him at [facility]. He states that these results will most likely take 2+ weeks. Until then, support with appropriate antibiotics and blood transfusions. I was hopeful that patient could be discharged, but blood cultures showed a resistant bug, so will discuss with the rest of the team. (2) Pneumonia Qualifiers: Pneumonia type: due to unspecified organism Laterality: unspecified laterality Lung location: unspecified part of lung Qualified Code(s): J18.9 - Pneumonia, unspecified organism Is this a current diagnosis for this admission?: Yes Plan: Currently on appropriate antibiotics. I will add chloraseptic for her throat pain.
[2019-02-13] MEDS: AMLODIPINE BESYLATE 10 MG TABLET PO SCH (10:02)
[2019-02-13] MEDS: MAGNESIUM OXIDE 400 MG TABLET PO SCH (10:02)
[2019-02-13] MEDS: VALACYCLOVIR HCL 500 MG TABLET PO SCH (10:02)
[2019-02-13] MEDS: ALLOPURINOL 300 MG TABLET PO SCH (10:02)
[2019-02-13] MEDS: CEFEPIME 1 GM/D5W RTU 1 GM/50 ML RTUPB IV SCH ×2 (10:05→21:18)
[2019-02-13 13:52] LABS: CREATININE UR 0.36 g/L (0.30-3.00); METHYLMALONIC ACID URINE 8.7 umol/L (1.6-29.7)
[2019-02-13 14:44] LABS: HEMATOCRIT 27.2 % (36.0-47.0); HEMOGLOBIN 9.6 g/dL (12.0-15.5); MEAN CORPUSCULAR HEMOGLOBIN 34.2 pg (27.0-33.4); MEAN CORPUSCULAR HGB CONC 35.2 g/dL (32.0-36.0); MEAN CORPUSCULAR VOLUME 97 fl (80-97); RED CELL DISTRIBUTION WIDTH 22.7 % (11.5-14.0); WHITE BLOOD COUNT 21.3 10^3/uL (4.0-10.5)
[2019-02-13 14:58] LABS: ANION GAP 6 (5-19); BLOOD UREA NITROGEN 8 mg/dL (7-20); CALCIUM 9.3 mg/dL (8.4-10.2); CARBON DIOXIDE 28 mmol/L (22-30); CHLORIDE 105 mmol/L (98-107); GLUCOSE 88 mg/dL (75-110); SODIUM 138.8 mmol/L (137-145)
--- NOTE | 2019-02-13 15:01 | PDOC PROGRESS REPORT ---
Subjective Progress Note for:: 02/13/19 Subjective:: This is a 68 yr old female with a PMH of uterine carcinoma (previously received chemoradiation therapy in 2018) and recent diagnosis of AML on chemotherapy who presented with fever, headache and sore throat. Her chest x-ray showed possible left-sided pneumonia. She was started on IV antibiotics. No acute event overnight. This morning, she says she continues to feel better but still complains of discomfort on her left jaw and left neck area. Throat examination is unremarkable. No significant productive cough. Her first set of blood cultures grew S. stimulants 1/2 bottles. Reason For Visit: FEVER Physical Exam Vital Signs: Temp Pulse Resp BP Pulse Ox 97.9 F 89 16 120/66 99 02/13/19 10:52 02/13/19 10:52 02/13/19 10:52 02/13/19 10:52 02/13/19 10:52 Intake & Output 02/12/19 02/13/19 02/14/19 06:59 06:59 06:59 Intake Total 2410 1737 300 Output Total 900 450 Balance 1510 1287 300 Weight 199 lb 15.348 oz 198 lb 13.711 oz General appearance: PRESENT: no acute distress, well-developed, well-nourished Head exam: PRESENT: atraumatic, normocephalic Eye exam: PRESENT: conjunctiva pink, EOMI, PERRLA. ABSENT: scleral icterus Ear exam: PRESENT: normal external ear exam Mouth exam: PRESENT: moist, tongue midline Neck exam: ABSENT: carotid bruit, JVD, lymphadenopathy, thyromegaly Respiratory exam: PRESENT: clear to auscultation luz. ABSENT: rales, rhonchi, wheezes Cardiovascular exam: PRESENT: RRR. ABSENT: diastolic murmur, rubs, systolic murmur Pulses: PRESENT: normal dorsalis pedis pul GI/Abdominal exam: PRESENT: normal bowel sounds, soft. ABSENT: distended, guarding, mass, organolmegaly, rebound, tenderness Rectal exam: PRESENT: deferred Extremities exam: PRESENT: full ROM. ABSENT: calf tenderness, clubbing, pedal edema Neurological exam: PRESENT: alert, awake, oriented to person, oriented to place, oriented to time, oriented to situation, CN II-XII grossly intact. ABSENT: motor sensory deficit Results Laboratory Results: 02/12/19 02/12/19 02/13/19 15:25 15:25 04:46 WBC 13.4 H RBC 2.93 L Hgb 9.8 L Hct 28.2 L MCV 96 D MCH 33.5 H MCHC 34.8 RDW 22.8 H Plt Count 17 L* Seg Neutrophils % Not Reportable Lymphocytes % Not Reportable Monocytes % Not Reportable Eosinophils % Not Reportable Basophils % Not Reportable Absolute Neutrophils Not Reportable Absolute Lymphocytes Not Reportable Absolute Monocytes Not Reportable Absolute Eosinophils Not Reportable Absolute Basophils Not Reportable Sodium 140.9 Potassium 5.2 H D Chloride 107 Carbon Dioxide 29 Anion Gap 5 BUN 9 Creatinine 0.81 0.77 Est GFR ( Amer) > 60 > 60 Est GFR (Non-Af Amer) > 60 > 60 Glucose 159 H Calcium 9.3 02/09/19 15:35 Troponin I < 0.012 Impressions: Chest X-Ray 02/09/19 15:03 IMPRESSION: Small area of airspace disease in the left lateral lung base. Small bilateral pleural effusions. Assessment and Plan - Diagnosis (1) Fever Qualifiers: Fever type: unspecified Qualified Code(s): R50.9 - Fever, unspecified Is this a current diagnosis for this admission?: Yes Plan: Chest x-ray shows possible left-sided pneumonia. Denies significantly productive cough at the moment. Blood cultures growing S. simulans 1/2 bottles. Noted sensitivity. Although this could be a possible contamination, this could also cause a true infection in the appropriate context. She denies any back or spinal tenderness. No concern for osteo at this time. Unable to appreciate a murmur. She does continue to complain of left sided jaw, neck pain. Unable to appreciate a palpable mass or abscess. Will pursue imaging of the area if she continues to have pain. Patient is edentulous. Unable to appreciate erythema tenderness around the Mediport. No recurrence of fever since the first day of admission. Will consult ID for further recommendations. Will repeat blood cultures. (2) Bacteremia due to Staphylococcus Is this a current diagnosis for this admission?: Yes Plan: As per #1. 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 (4) Pneumonia Qualifiers: Pneumonia type: due to unspecified organism Laterality: unspecified laterality Lung location: unspecified part of lung Qualified Code(s): J18.9 - Pneumonia, unspecified organism Is this a current diagnosis for this admission?: Yes Plan: Currently on IV antibiotics. Will await further ID recommendations. (5) Thrombocytopenia Is this a current diagnosis for this admission?: Yes Plan: Related to AML. No bleeding. SCDs for now. (6) Hypokalemia Is this a current diagnosis for this admission?: Yes Plan: Replace with 40 meqs PO. - Time Time Spent with patient: 25-34 minutes
[2019-02-13 15:10] LABS: POTASSIUM 3.8 mmol/L (3.6-5.0)
[2019-02-13 16:00] LABS: PLATELET COUNT 23 10^3/uL (150-450)
[2019-02-13] MEDS ORDERED: POTASSIUM CHLORIDE 10 MEQ CAPSULE.ER PO ONE (16:00)
[2019-02-13 16:02] LABS: ABSOLUTE LYMPHOCYTES# (MANUAL) 2.6 10^3/uL (0.5-4.7); ABSOLUTE MONOCYTES # (MANUAL) 10.2 10^3/uL (0.1-1.4); BAND NEUTROPHILS % (MANUAL) 4 % (3-5); BASOPHILS % (MANUAL) 0 % (0-2); EOSINOPHILS % (MANUAL) 0 % (0-6); IMMATURE MONONUCLEAR% (MANUAL) 25 % (0); LYMPHOCYTES % (MANUAL) 10 % (13-45); MONOCYTES % (MANUAL) 48 % (3-13); NUCLEATED RED BLOOD CELLS 1 /100 WBC (0); SEGMENTED NEUTROPHILS % (MAN) 11 % (42-78); TOTAL CELLS COUNTED 100
[2019-02-13 16:03] LABS: ANISOCYTOSIS 3+; PLATELET COMMENT DECREASED; POLYCHROMASIA SLIGHT
--- NOTE | 2019-02-13 16:14 | Progress Note ---
Provider Note Provider Note: ID Consult Note Asked to review patient's chart. Pt not seen or examined. Ms. Samuels is a 68 year old woman with PMH including uterine cancer treated with chemotherapy and radiation and subsequent diagnosis of treatment associated AML who presented to the ED on 02/09/19 with 2 day history of fever, headache and body aches. She denied SOB, pain with urination, vomiting, diarrhea, or rashes. She admitted to some cough and left sided jaw and neck pain. On exam she had no localizing findings including clear lungs, no palpable neck mass, no cardiac murmur, and soft nontender abdomen, and no tenderness around her Mediport. CXR on admission was read as showing a small area of airspace disease in the left lateral lung b ase. She has been receiving cefepime and vancomycin empirically for diagnosis of community acquired pneumonia. Blood cultures from admission grew Staphylococcus simulans in one bottle in one set drawn peripherally. The other set is negative. She has had no fever since 02/09. Impression/Recommendations Coagulase negative staphylococci are ubiquitous colonists of the skin and generally organisms that have low virulence. Most commonly, the growth of Staphylococcus simulans from one blood culture bottle would be consistent with a contaminant. The growth of this organism from blood cultures in conjunction with fever and a port raises the question of this being a true bacteremia, but she has also been diagnosed with pneumonia, which can account for the fever and her complaint of cough. Right now there is not enough information to implicate that her port is infected or that the Staphylococcus simulans that grew from a single blood culture represents a true bacteremia. In absence of risk factors such as recent prior IV antibiotic exposure or preceding influenza infection, MRSA pneumonia is unlikely, and discontinuing vancomycin should be considered. Would draw a set of blood cultures from the port and from a peripheral stick if she develops recurrent fever. If the port is infected, she should be treated with at least 10 days of IV vancomycin. Markus López MD [facility] pager [phone]
[2019-02-13] MEDS ORDERED: POTASSIUM CHLORIDE 20 MEQ PACKET PO ONE (16:53)
--- NOTE | 2019-02-13 18:13 | RADIOLOGY REPORT (SQ) ---
EXAM DESCRIPTION: CT SOFT TISSUE NECK WITHOUT COMPLETED DATE/TIME: 02/13/2019 5:46 pm REASON FOR STUDY: fever of unknown origin,left neck/jaw pain COMPARISON: None. TECHNIQUE: Noncontrast scanning from skull base through lung apices with review of bone, soft tissue and lung windows. Reconstructed coronal and sagittal MPR images reviewed. All images stored on PAC S. All CT scanners at this facility use dose modulation, iterative reconstruction, and/or weight based d osing when appropriate to reduce radiation dose to as low as reasonably achievable (ALARA). [facility]: Dose Right [facility]: CareDose [facility]: Dose Right [facility]: Teradose 4D [facility]: [employer] Technologies RADIATION DOSE: CT Rad equipment meets quality standard of care and radiation dose reduction techniq ues were employed. CTDIvol: 13.9 mGy. DLP: 415 mGy-cm. mGy. LIMITATIONS: None. FINDINGS: SKULL BASE: Intact. MAJOR SALIVARY GLANDS: No solid or cystic masses. No inflammatory changes. LYMPHADENOPATHY: No adenopathy. MUCOSAL MASSES OR ASYMMETRY: No mucosal masses or asymmetry. LARYNX/CORDS: No abnormal findings. LUNG APICES: Clear. BONES: Intact. THYROID: Normal size. Small right lobe cyst. . PARANASAL SINUSES: Clear. OTHER: No other significant finding. IMPRESSION: No acute findings. TECHNICAL DOCUMENTATION: JOB ID: [id number] Quality ID # [id number]: Final reports with documentation of one or more dose reduction techniques (e.g., Au tomated exposure control, adjustment of the mA and/or kV according to patient size, use of iterative reconstruction technique) 2010 [employer]- All Rights Reserved Reading location - IP/workstation name: [email or web address]
[2019-02-14] MEDS: VANCOMYCIN HCL 750 MG in DEXTROSE 5%-WATER 250 ML IV SCH ×2 (05:08→17:32)
[2019-02-14 06:18] LABS: HEMATOCRIT 26.6 % (36.0-47.0); HEMOGLOBIN 9.3 g/dL (12.0-15.5); MEAN CORPUSCULAR HEMOGLOBIN 33.5 pg (27.0-33.4); MEAN CORPUSCULAR HGB CONC 34.9 g/dL (32.0-36.0); MEAN CORPUSCULAR VOLUME 96 fl (80-97); RED BLOOD COUNT 2.78 10^6/uL (3.72-5.28); RED CELL DISTRIBUTION WIDTH 21.9 % (11.5-14.0)
[2019-02-14 06:35] LABS: ANION GAP 6 (5-19); BLOOD UREA NITROGEN 9 mg/dL (7-20); CALCIUM 8.9 mg/dL (8.4-10.2); CARBON DIOXIDE 28 mmol/L (22-30); CHLORIDE 105 mmol/L (98-107); GLUCOSE 106 mg/dL (75-110); POTASSIUM 3.4 mmol/L (3.6-5.0); SODIUM 138.8 mmol/L (137-145)
[2019-02-14 06:51] LABS: PLATELET COUNT 23 10^3/uL (150-450)
[2019-02-14 07:27] LABS: ABSOLUTE LYMPHOCYTES# (MANUAL) 4.6 10^3/uL (0.5-4.7); ABSOLUTE MONOCYTES # (MANUAL) 12.7 10^3/uL (0.1-1.4); BASOPHILS % (MANUAL) 0 % (0-2); EOSINOPHILS % (MANUAL) 0 % (0-6); LYMPHOCYTES % (MANUAL) 19 % (13-45); MONOCYTES % (MANUAL) 53 % (3-13); NUCLEATED RED BLOOD CELLS 5 /100 WBC (0); SEGMENTED NEUTROPHILS % (MAN) 28 % (42-78); TOTAL CELLS COUNTED 100
[2019-02-14 07:34] LABS: ANISOCYTOSIS 3+; OVALOCYTES SLIGHT; PLATELET COMMENT DECREASED; POIKILOCYTOSIS SLIGHT; TOXIC GRANULATION 1+
--- NOTE | 2019-02-14 09:01 | PDOC PROGRESS REPORT ---
Subjective Progress Note for:: 02/14/19 Subjective:: Patient without new complaints today. Left neck still very painful. Difficulty eating due to this. ROS: No nausea. No headache. Reason For Visit: FEVER Physical Exam Vital Signs: Temp Pulse Resp BP Pulse Ox 98.3 F 95 16 124/65 96 02/14/19 00:00 02/14/19 00:00 02/14/19 00:00 02/14/19 00:00 02/14/19 00:00 Intake & Output 02/13/19 02/14/19 02/15/19 06:59 06:59 06:59 Intake Total 1737 1148 250 Output Total 450 574 Balance 1287 574 250 Weight 90.2 kg 89.6 kg General appearance: PRESENT: no acute distress, well-developed, well-nourished Head exam: PRESENT: normocephalic Respiratory exam: PRESENT: clear to auscultation luz, unlabored Cardiovascular exam: PRESENT: RRR GI/Abdominal exam: PRESENT: normal bowel sounds, soft Neurological exam: PRESENT: alert, awake Psychiatric exam: PRESENT: appropriate affect Skin exam: PRESENT: normal color Results Laboratory Results: 02/14/19 05:42 02/14/19 05:42 02/13/19 02/13/19 02/13/19 12:53 12:53 12:53 WBC 21.3 H RBC 2.80 L Hgb 9.6 L Hct 27.2 L MCV 97 MCH 34.2 H MCHC 35.2 RDW 22.7 H Plt Count 23 L* Seg Neutrophils % Not Reportable Lymphocytes % Not Reportable Monocytes % Not Reportable Eosinophils % Not Reportable Basophils % Not Reportable Absolute Neutrophils Not Reportable Absolute Lymphocytes Not Reportable Absolute Monocytes Not Reportable Absolute Eosinophils Not Reportable Absolute Basophils Not Reportable Sodium 138.8 Potassium 3.8 D Chloride 105 Carbon Dioxide 28 Anion Gap 6 BUN 8 Creatinine 0.73 Est GFR ( Amer) > 60 Est GFR (Non-Af Amer) > 60 Glucose 88 Calcium 9.3 TSH 1.89 02/14/19 02/14/19 05:42 05:42 WBC 24.0 H RBC 2.78 L Hgb 9.3 L Hct 26.6 L MCV 96 MCH 33.5 H MCHC 34.9 RDW 21.9 H Plt Count 23 L* Seg Neutrophils % Not Reportable Lymphocytes % Not Reportable Monocytes % Not Reportable Eosinophils % Not Reportable Basophils % Not Reportable Absolute Neutrophils Not Reportable Absolute Lymphocytes Not Reportable Absolute Monocytes Not Reportable Absolute Eosinophils Not Reportable Absolute Basophils Not Reportable Sodium 138.8 Potassium 3.4 L Chloride 105 Carbon Dioxide 28 Anion Gap 6 BUN 9 Creatinine 0.72 Est GFR ( Amer) > 60 Est GFR (Non-Af Amer) > 60 Glucose 106 Calcium 8.9 TSH 02/09/19 15:35 Troponin I < 0.012 Impressions: Chest X-Ray 02/09/19 15:03 IMPRESSION: Small area of airspace disease in the left lateral lung base. Small bilateral pleural effusions. Soft Tissue Neck CT 02/13/19 14:51 IMPRESSION: No acute findings. 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 Only transfusion support at present. Try to avoid transfusions if possible, unless active bleeding or hemodynamically unstable. No indication for transfusion currently. (2) Pneumonia Qualifiers: Pneumonia type: due to unspecified organism Laterality: unspecified laterality Lung location: unspecified part of lung Qualified Code(s): J18.9 - Pneumonia, unspecified organism Is this a current diagnosis for this admission?: Yes Plan: Reviewed ID's note. Greatly appreciate their input. Agree that this is most likely contaminate. Await further blood culture results.
[2019-02-14] MEDS ORDERED: POTASSIUM CHLORIDE 10 MEQ CAPSULE.ER PO ONE (10:15)
[2019-02-14] MEDS: MAGNESIUM OXIDE 400 MG TABLET PO SCH (10:31)
[2019-02-14] MEDS: AMLODIPINE BESYLATE 10 MG TABLET PO SCH (10:31)
[2019-02-14] MEDS: CEFEPIME 1 GM/D5W RTU 1 GM/50 ML RTUPB IV SCH (10:35)
[2019-02-14 10:41] LABS: PATH REVIEW PATHOLOGIST REVIEWED
[2019-02-14] MEDS: VALACYCLOVIR HCL 500 MG TABLET PO SCH (10:41)
[2019-02-14] MEDS: ALLOPURINOL 300 MG TABLET PO SCH (10:41)
[2019-02-14] MEDS ORDERED: POTASSIUM CHLORIDE 20 MEQ PACKET PO ONE (12:00)
--- NOTE | 2019-02-14 16:31 | RADIOLOGY REPORT (SQ) ---
EXAM DESCRIPTION: CAROTID DOPPLER COMPLETED DATE/TIME: 02/14/2019 4:22 pm REASON FOR STUDY: eval for carotid stenosis COMPARISON: None. TECHNIQUE: Grayscale ultrasound, Doppler velocity and spectra, and color Doppler images acquired of the extra-cranial carotid and vertebral arteries. Images stored on PACS. LIMITATIONS: None. FINDINGS: RIGHT CAROTID CCA Velocities: Within normal limits. ICA Velocities Peak systolic 0.55 m/s. End diastolic 0.26 m/s. Proximal ICA/CCA peak systolic ratio 1.6. Spectra normal. No significant plaque. LEFT CAROTID CCA Velocities: Within normal limits. ICA Velocities Peak systolic 0.44 m/s. End diastolic 0.18 m/s. Proximal ICA/CCA peak systolic ratio 1.3. Spectra normal. No significant plaque. VERTEBRAL ARTERIES: Antegrade flow. Normal waveforms. SUBCLAVIAN ARTERIES: Not imaged. OTHER: No other significant finding. IMPRESSION: NO HEMODYNAMICALLY SIGNIFICANT STENOSIS. COMMENT: Quality ID #[id number]: Velocity criteria are extrapolated from the diameter data as defined by t he Society of Radiologists in Ultrasound Consensus Conference. Radiology 2003: 229; 340-346. TECHNICAL DOCUMENTATION: JOB ID: [id number] [employer]- All Rights Reserved Reading location - IP/workstation name: [email or web address]
[2019-02-14 17:52] VITALS: BP 120/71
--- NOTE | 2019-02-15 18:35 | PDOC DISCHARGE SUMMARY ---
General - Admit/Disc Date/PCP Admission Date/Primary Care Provider: 02/09/19 18:12 VIJAY BRANDON MD Discharge Date: 02/14/19 - Discharge Diagnosis (1) Pneumonia Is this a current diagnosis for this admission?: Yes (2) Fever Is this a current diagnosis for this admission?: Yes (3) Bacteremia due to Staphylococcus Is this a current diagnosis for this admission?: Yes (4) AML (acute myeloid leukemia) Is this a current diagnosis for this admission?: Yes (5) Thrombocytopenia Is this a current diagnosis for this admission?: Yes (6) Hypokalemia Is this a current diagnosis for this admission?: Yes - Additional Information Resuscitation Status: Do Not Resuscitate Discharge Diet: As Tolerated Discharge Activity: Activity As Tolerated, Balance Activity w/Rest Prescriptions: Levofloxacin [Levaquin 750 mg Tablet] 750 mg PO DAILY 3 Days #3 tab Home Medications: Allopurinol [Zyloprim 300 mg Tablet] 300 mg PO DAILY 02/09/19 Amlodipine Besylate [Norvasc 10 mg Tablet] 10 mg PO DAILY 02/09/19 Lidocaine [Lidoderm 5% (700 mg) Transdermal Patch] 1 patch TOP DAILY MDD right knee 02/09/19 Magnesium Oxide [Mag-Ox 400 mg Tablet] 400 mg PO DAILY 02/09/19 Valacyclovir HCl [Valtrex 500 mg Tablet] 500 mg PO DAILY 02/09/19 Venetoclax [Venclexta] 100 mg PO Q12 02/09/19 Levofloxacin [Levaquin 750 mg Tablet] 750 mg PO DAILY 3 Days #3 tab 02/14/19 History of Present Illness History of Present Illness: Admitting hospitalist's H&P: KRISTOFER FLORES is a 68 year old female with a past medical history of AML who reports to the ER with a 2-day history of fever, cough and sore throat. Patient states her fever got up to around 101 last night she took some Tylenol it went down initially came back her son gave her some NyQuil again it went away and then this morning he came back at 100.9. Patient states no other symptoms at this time. She has had no treatment other than the above-mentioned prior to arrival no known aggravating factors Hospital Course Hospital Course: This is a 68 yr old female with a PMH of uterine carcinoma (previously received chemoradiation therapy in 2018) and recent diagnosis of AML on chemotherapy who presented with fever, headache and sore throat. Her chest x-ray showed possible left-sided pneumonia. She was started on IV antibiotics. Her first set of blood cultures grew S. stimulants 1/2 bottles. ID was also consulted. This was deemed to be consistent with contamination. She did not have recurrence of fever. Blood cultures were both negative. Extensive work-up for focus of infection was unremarkable aside from the left lower lobe pneumonia. She did improve and return to her baseline. She will be discharged on p.o. levofloxacin. Physical Exam Vital Signs: Temp Pulse Resp BP Pulse Ox 98.2 F 98 17 120/71 95 02/14/19 17:50 02/14/19 17:50 02/14/19 17:50 02/14/19 17:50 02/14/19 17:50 Intake & Output 02/14/19 02/15/19 02/16/19 06:59 06:59 06:59 Intake Total 1148 300 Output Total 574 Balance 574 300 Weight 197 lb 8.547 oz General appearance: PRESENT: no acute distress, well-developed, well-nourished Head exam: PRESENT: atraumatic, normocephalic Eye exam: PRESENT: conjunctiva pink, EOMI, PERRLA. ABSENT: scleral icterus Ear exam: PRESENT: normal external ear exam Mouth exam: PRESENT: moist, tongue midline Neck exam: ABSENT: carotid bruit, JVD, lymphadenopathy, thyromegaly Respiratory exam: PRESENT: clear to auscultation luz. ABSENT: rales, rhonchi, wheezes Cardiovascular exam: PRESENT: RRR. ABSENT: diastolic murmur, rubs, systolic murmur Pulses: PRESENT: normal dorsalis pedis pul GI/Abdominal exam: PRESENT: normal bowel sounds, soft. ABSENT: distended, guarding, mass, organolmegaly, rebound, tenderness Rectal exam: PRESENT: deferred Extremities exam: PRESENT: full ROM. ABSENT: calf tenderness, clubbing, pedal edema Neurological exam: PRESENT: alert, awake, oriented to person, oriented to place, oriented to time, oriented to situation, CN II-XII grossly intact. ABSENT: motor sensory deficit Results Laboratory Results: 02/14/19 05:42 02/14/19 14:30 02/14/19 05:42 WBC 24.0 H RBC 2.78 L Hgb 9.3 L Hct 26.6 L MCV 96 MCH 33.5 H MCHC 34.9 RDW 21.9 H Plt Count 23 L* 02/09/19 15:35 Blood Blood Culture - Final NO GROWTH IN 5 DAYS 02/09/19 15:35 Troponin I < 0.012 Impressions: Chest X-Ray 02/09/19 15:03 IMPRESSION: Small area of airspace disease in the left lateral lung base. Small bilateral pleural effusions. Soft Tissue Neck CT 02/13/19 14:51 IMPRESSION: No acute findings. Carotid Doppler Study 02/14/19 13:09 IMPRESSION: NO HEMODYNAMICALLY SIGNIFICANT STENOSIS. Qualifiers - * PATIENT BEING DISCHARGED WITH ANY OF THE FOLLOWING DIAGNOSIS: No Acute Heart Failure - Is this a Heart Failure Patient?: No LVEF < 40%?: No- if no continue to question #3
== END 2019-02-14 18:37 | disposition home or self-care (01) | DRG 194 ==
LOC: ER 14:45 → EH 18:12 → 4N 21:46
PROVIDERS: ADMIT Hospitalist; ATTEND Hospitalist
PROC: 30243N1 Transfusion of Nonautologous Red Blood Cells into Central Vein, Percutaneous Approach (ICD-10-PCS; principal; 2019-02-11)
DX: J18.9 Pneumonia, unspecified organism (principal); C93.00 Acute monoblastic/monocytic leukemia, not having achieved remission; Z88.8 Allergy status to other drugs, medicaments and biological substances; I10 Essential (primary) hypertension; M19.90 Unspecified osteoarthritis, unspecified site; E87.6 Hypokalemia; Z85.42 Personal history of malignant neoplasm of other parts of uterus; F41.9 Anxiety disorder, unspecified
CPT/HCPCS: 36415; 36430; 70490; 71046; 80048; 80053; 80202; 81001; 82272; 82565; 82607; 82746; 82803; 83605; 83735; 83921; 84132; 84443; 84484; 85025; 85610; 86850; 86900; 86901; 86920; 87040; 87077; 87086; 87186; 87493; 93005; 93010; 93880; 96361; 96374; 96375; 99284; J0692; J1642; J2543; J3370; J3490; J7030; J7050; J7060; P9016